=== PATIENT | male | born 1935 | race Caucasian/White ===

== ENCOUNTER 2016-09-08 09:27 | Outpatient (CLI) | payer MEDICARE, OTHER | END 2016-09-08 09:28 | disposition home or self-care (01) | DX: M85.88 Other specified disorders of bone density and structure, other site (principal) ==

== ENCOUNTER 2018-02-05 02:29 | Outpatient (CLI) | payer MEDICARE, OTHER | END 2018-02-05 02:30 | disposition critical access hospital (66) | LOC: EMS 02:29 | PROVIDERS: ATTEND Surgery | DX: R53.1 Weakness (principal); R52 Pain, unspecified | CPT/HCPCS: A0425; A0429 ==

== ENCOUNTER 2018-02-05 02:44 | Emergency (ER) | payer MEDICARE, OTHER ==
--- NOTE | 2018-02-05 03:18 | ED Physician Documentation ---
History of Present Illness - Stated complaint Stated Complaint: CHILLS, NOT FELLING WELL - Chief complaint Chief Complaint: Neuro - History obtained from History obtained from: Patient - History of Present Illness Timing: How many weeks ago (1) Pain level now: 5 Improved by: rest ameliorates the pain, although pain and stiffness are worse after prolonged rest Worsened by: movement exacerbates pain - Additonal information Additional information: c/o 1 week of gradually worsening pain and weakness in all extremities, with pain predominantly in proximal UE, shoulders and hips. cannot raise arms above head due to pain, and has had increasing difficulty brushing his teeth because of the pain associated with raising either arm high enough to do so. difficulty standing up, getting out of a chair Review of Systems Constitutional: reports: Chills, Myalgias. denies: Fever, Fatigue, Sweats Eyes: reports: Reviewed and negative Cardiac: reports: Reviewed and negative Respiratory: reports: Reviewed and negative GI: reports: Reviewed and negative : denies: Dysuria, Frequency, Incontinent Musculoskeletal: reports: Extremity pain. denies: Neck pain, Back pain Neurologic: reports: Generalized weakness. denies: Focal weakness, Numbness, Headache PD PAST MEDICAL HISTORY - Past Medical History Cardiovascular: Hypertension Respiratory: Other Endocrine/Autoimmune: None GI: None : Benign prostate hypertrophy HEENT: Other Psych: None Musculoskeletal: None Derm: None - Past Surgical History Ortho: Shoulder arthroplasty Cardiovascular:  - Present Medications Home Medications: Ambulatory Orders Medication Instructions Recorded Confirmed Aspirin 1 tab PO DAILY 07/11/14 02/05/18 Simvastatin [Zocor] 20 mg PO QPM 07/11/14 02/05/18 Telmisartan [Micardis] 80 mg PO DAILY 07/11/14 02/05/18 Doxycycline Hyclate [Vibramycin] 1 tab PO DAILY 02/05/18 02/05/18 Fluticasone [Flonase] 1 spray INH PRN PRN 02/05/18 02/05/18 Hydrochlorothiazide 1 tab PO DAILY 02/05/18 02/05/18 Loratadine [Claritin] 1 tab PO DAILY 02/05/18 02/05/18 Mometasone Furoate [Asmanex Hfa] 1 puffs INH PRN PRN 02/05/18 02/05/18 Multivitamin/Iron/Folic Acid 1 tab PO DAILY 02/05/18 02/05/18 [Centrum Adults Tablet] Pantoprazole [Protonix] 0.5 tab PO DAILY 02/05/18 02/05/18 Tamsulosin [Flomax] 1 tab PO DAILY 02/05/18 02/05/18 Umeclidinium Brm/Vilanterol Tr 1 puffs PO DAILY 02/05/18 02/05/18 [Anoro Ellipta 62.5-25 Mcg INH] predniSONE [Prednisone] 20 mg PO DAILY #30 tablet 02/05/18 - Allergies Allergies/Adverse Reactions: Allergies Allergy/AdvReac Type Severity Reaction Status Date / Time fluticasone propionate * AdvReac Unknown Verified 02/05/18 02:49 [From AdvVimagino Diskus] salmeterol xinafoate * AdvReac Unknown Verified 02/05/18 02:49 [From Advair Diskus] - Social History Does the pt smoke?: No Smoking Status: Never smoker PD ED PE NORMAL - Vitals Vital signs reviewed: Yes - General General: Alert and oriented X 3, No acute distress, Well developed/nourished - HEENT HEENT: Moist mucous membranes - Neck Neck: Supple, no meningeal sign - Cardiac Cardiac: RRR - Respiratory Respiratory: No respiratory distress, Clear bilaterally - Abdomen Abdomen: Soft, Non tender - Derm Derm: Normal color, Warm and dry - Extremities Extremities: No edema, Other (limited ROM: unable to abduct either arm to greater than 90 degrees due to pain, weakness) - Neuro Neuro: Alert and oriented X 3, 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, No motor deficit, No sensory deficit, Normal speech Eye Opening: Spontaneous Motor: Obeys Commands Verbal: Oriented GCS Score: 15 PD ED PE EXPANDED - Cardiac Cardiac: Murmur Present (2/6 THOMAS at cardiac base and left sternal border) Results - Vitals Vitals: Vital Signs - 24 hr 02/05/18 02/05/18 05:53 06:05 Heart Rate 65 67 Respiratory 18 16 Rate Blood Pressure 150/69 H 151/72 H O2 Saturation 97 97 Oxygen O2 Source Room air - EKG (time done) No standard instances Rate: Rate (enter#) (71) Rhythm: NSR [place]: LAD Intervals: Normal MT QRS: LVH Ischemia: Normal ST segments, Q waves (III, aVF) - Labs Labs: Laboratory Tests 02/05/18 02/05/18 02/05/18 04:00 04:00 04:00 WBC 6.5 RBC 4.25 L Hgb 13.3 L Hct 38.2 L MCV 89.9 MCH 31.4 H MCHC 34.9 RDW 14.6 Plt Count 161 MPV 9.3 Neut # (Auto) 4.0 Lymph # (Auto) 1.2 L [place] # (Auto) 0.9 Eos # (Auto) 0.4 Baso # (Auto) 0.0 Absolute Nucleated RBC 0.00 Nucleated RBC % 0.1 ESR Sodium 135 Potassium 3.9 Chloride 103 Carbon Dioxide 24 Anion Gap 8.0 BUN 15 Creatinine 1.0 Estimated GFR (MDRD) 72 L Glucose 130 H Lactic Acid Calcium 8.2 L Total Bilirubin 0.8 AST 47 H ALT 66 H Alkaline Phosphatase 93 Total Creatine Kinase 69 CK-MB (CK-2) 2.6 Troponin I 0.05 C-Reactive Protein 5.7 H Total Protein 6.2 L Albumin 3.1 L Globulin 3.1 Albumin/Globulin Ratio 1.0 Lipase 31 TSH Urine Color Urine Clarity Urine pH Ur Specific [place] Urine Protein Urine Glucose (UA) Urine Ketones Urine Occult Blood Urine Nitrite Urine Bilirubin Urine Urobilinogen Ur Leukocyte Esterase Urine RBC Urine WBC Ur Squamous Epith Cells Urine Bacteria Urine Mucus Ur Microscopic Review Urine Culture Comments 02/05/18 02/05/18 02/05/18 04:00 04:00 04:00 WBC RBC Hgb Hct MCV MCH MCHC RDW Plt Count MPV Neut # (Auto) Lymph # (Auto) [place] # (Auto) Eos # (Auto) Baso # (Auto) Absolute Nucleated RBC Nucleated RBC % ESR 15 Sodium Potassium Chloride Carbon Dioxide Anion Gap BUN Creatinine Estimated GFR (MDRD) Glucose Lactic Acid 0.7 Calcium Total Bilirubin AST ALT Alkaline Phosphatase Total Creatine Kinase CK-MB (CK-2) Troponin I C-Reactive Protein Total Protein Albumin Globulin Albumin/Globulin Ratio Lipase TSH 4.59 Urine Color Urine Clarity Urine pH Ur Specific [place] Urine Protein Urine Glucose (UA) Urine Ketones Urine Occult Blood Urine Nitrite Urine Bilirubin Urine Urobilinogen Ur Leukocyte Esterase Urine RBC Urine WBC Ur Squamous Epith Cells Urine Bacteria Urine Mucus Ur Microscopic Review Urine Culture Comments 02/05/18 04:23 WBC RBC Hgb Hct MCV MCH MCHC RDW Plt Count MPV Neut # (Auto) Lymph # (Auto) [place] # (Auto) Eos # (Auto) Baso # (Auto) Absolute Nucleated RBC Nucleated RBC % ESR Sodium Potassium Chloride Carbon Dioxide Anion Gap BUN Creatinine Estimated GFR (MDRD) Glucose Lactic Acid Calcium Total Bilirubin AST ALT Alkaline Phosphatase Total Creatine Kinase CK-MB (CK-2) Troponin I C-Reactive Protein Total Protein Albumin Globulin Albumin/Globulin Ratio Lipase TSH Urine Color YELLOW Urine Clarity CLEAR Urine pH 6.0 Ur Specific [place] 1.020 Urine Protein NEGATIVE Urine Glucose (UA) NEGATIVE Urine Ketones NEGATIVE Urine Occult Blood MODERATE H Urine Nitrite NEGATIVE Urine Bilirubin NEGATIVE Urine Urobilinogen 0.2 (NORMAL) Ur Leukocyte Esterase NEGATIVE Urine RBC 0-5 Urine WBC 0-3 Ur Squamous Epith Cells FEW Squamous Urine Bacteria Rare Urine Mucus Few Strands Ur Microscopic Review INDICATED Urine Culture Comments NOT INDICATED PD MEDICAL DECISION MAKING - ED course Complexity details: reviewed results, re-evaluated patient, considered differential, d/w patient - Sepsis Event Vital Signs: Vital Signs - 24 hr 02/05/18 02/05/18 05:53 06:05 Heart Rate 65 67 Respiratory 18 16 Rate Blood Pressure 150/69 H 151/72 H O2 Saturation 97 97 Oxygen O2 Source Room air Departure - Departure Disposition: 01 Home, Self Care Clinical Impression: Polymyalgia rheumatica Condition: Good Instructions: Understanding Polymyalgia Rheumatica, Treatment for Polymyalgia Rheumatica Follow-Up: Kali Fajardo MD [Primary Care Provider] - Prescriptions: predniSONE [Prednisone] 20 mg PO DAILY #30 tablet Comments: It is essential that you follow-up with your primary care physician for further evaluation/reassessment. Do not suddenly stop the steroid (prednisone); you will likely need to be tapered off of the steroid. I have prescribed a one month supply of the steroid; this should give adequate time for you to be seen by your doctor, and they can prescribe more or prescribe a taper as they see appropriate. Discharge Date/Time: 02/05/18 06:05
[2018-02-05 04:21] LABS: BASOPHILS % (AUTO) 0.7 %; EOSINOPHILS # (AUTO) 0.4 10^3/uL (0.0-0.7); EOSINOPHILS % (AUTO) 5.9 %; HGB - HEMOGLOBIN 13.3 g/dL (14.0-18.0); LYMPHOCYTES # (AUTO) 1.2 10^3/uL (1.5-3.5); MEAN CORPUSCULAR HEMOGLOBIN 31.4 pg (27.0-31.0); MEAN CORPUSCULAR HGB CONC 34.9 g/dL (32.0-36.0); MEAN CORPUSCULAR VOLUME 89.9 fL (80.0-94.0); MEAN PLATELET VOLUME 9.3 fL (7.4-11.4); MONOCYTES # (AUTO) 0.9 10^3/uL (0.0-1.0); MONOCYTES % (AUTO) 13.5 %; NEUTROPHILS % (AUTO) 61.9 %; PLT - PLATELET COUNT 161 10^3/uL (130-450); RED BLOOD COUNT 4.25 10^6/uL (4.70-6.10); RED CELL DISTRIBUTION WIDTH 14.6 % (12.0-15.0); WHITE BLOOD COUNT 6.5 x10^3/uL (4.8-10.8)
[2018-02-05 04:28] LABS: BILIRUBIN,URINE NEGATIVE (NEGATIVE); GLUCOSE, URINE (UA) NEGATIVE (NEGATIVE); KETONES,URINE (UA) NEGATIVE (NEGATIVE); LEUKOCYTE ESTERASE, URINE NEGATIVE (NEGATIVE); NITRITE,URINE NEGATIVE (NEGATIVE); OCCULT BLOOD,URINE MODERATE (NEGATIVE); PROTEIN,URINE NEGATIVE (NEGATIVE); UROBILINOGEN,URINE 0.2 (NORMAL) E.U./dL (NORMAL)
--- NOTE | 2018-02-05 04:28 | XRAY Report ---
Reason: dyspnea Procedure Date: 02/05/2018 Accession Number: [id number] / [id number] Procedure: XR - Chest 2 View X-Ray CPT Code: 54449 FULL RESULT: EXAM: CHEST RADIOGRAPHY EXAM DATE: 02/05/2018 04:21 AM. CLINICAL HISTORY: Dyspnea COMPARISON: CHEST 2 VIEW PA/LAT 12/31/2015 11:28 AM CHEST W/O 12/31/2015 12:02 AM. TECHNIQUE: 2 views. FINDINGS: Lungs/Pleura: No focal opacities evident. No pleural effusion. No pneumothorax. Normal volumes. Mediastinum: Heart and mediastinal contours are unremarkable. Other: None. IMPRESSION: Stable negative 2-view chest radiography. RADIA
[2018-02-05 04:31] LABS: TROPONIN I 0.05 ng/mL (<0.49)
[2018-02-05 04:32] LABS: ALBUMIN 3.1 g/dL (3.2-5.5); BILIRUBIN,TOTAL 0.8 mg/dL (0.2-1.0); CALCIUM 8.2 mg/dL (8.5-10.3); CRP - C-REACTIVE PROTEIN 5.7 mg/dL (0-1.0); TOTAL PROTEIN 6.2 g/dL (6.7-8.2)
[2018-02-05 04:33] LABS: CREATINE KINASE MB 2.6 ng/mL (0.6-6.3)
[2018-02-05 04:50] LABS: CLARITY,URINE CLEAR (CLEAR); RBC,URINE 0-5 /HPF (0-5)
[2018-02-05 04:51] LABS: BACTERIA,URINE Rare /HPF (None Seen); MUCUS,URINE Few Strands; SQUAMOUS EPITHELIAL CELL,UR FEW Squamous (<= Few)
[2018-02-05] MEDS ORDERED: predniSONE 20 MG TABLET PO STA (05:52)
[2018-02-05 06:11] VITALS: BP 151/72
== END 2018-02-05 06:05 | disposition home or self-care (01) ==
LOC: EDUNIT# → EDBD → ED 02:44
DX: M35.3 Polymyalgia rheumatica (principal); I10 Essential (primary) hypertension
CPT/HCPCS: 36415; 71046; 80053; 81001; 82550; 82553; 83605; 83690; 84443; 84484; 85025; 85651; 86140; 93005; 99283; J7512; 81003; 87086

== ENCOUNTER 2019-01-31 11:14 | Outpatient (CLI) | payer MEDICARE, OTHER | END 2019-01-31 11:15 | disposition home or self-care (01) | LOC: DI 11:14 | PROVIDERS: ATTEND Internal Medicine | DX: R06.00 Dyspnea, unspecified (principal); I35.0 Nonrheumatic aortic (valve) stenosis; I27.20 Pulmonary hypertension, unspecified; I51.9 Heart disease, unspecified | CPT/HCPCS: 93306 ==

== ENCOUNTER 2019-03-21 11:14 | Outpatient (CLI) | payer MEDICARE, OTHER ==
--- NOTE | 2019-03-21 17:23 | XRAY Report ---
Reason: EARLY SATIETY, GERD, ABD BLOATING Procedure Date: 03/21/2019 Accession Number: [id number] / [id number] Procedure: FL - Esophogram CPT Code: FULL RESULT: EXAM: BARIUM ESOPHAGRAM EXAM DATE: 03/21/2019 12:00 PM. CLINICAL HISTORY: Early satiety, GERD, abdominal bloating. COMPARISONS: None. TECHNIQUE: Routine double contrast esophagram. Fluoroscopy Time: 1 minute 35 seconds. Number of Images: 47. FINDINGS: Swallowing Mechanism: Normal. No tracheal aspiration or penetration. Esophageal Motility: Normal peristaltic stripping wave. Mucosa: Normal. No ulcerations or masses. Gastroesophageal Junction: Normal. No hernia, stricture, or significant reflux. Other: Small Zenker's diverticulum is noted on rapid sequence pharyngeal swallowing study at the level of C6. Filling of the diverticulum was transient and emptying was spontaneous. IMPRESSION: 1. Small Zenker's diverticulum, likely incidental. 2. Otherwise normal barium swallow. RADIA
== END 2019-03-21 11:15 | disposition home or self-care (01) ==
LOC: DI 11:14
PROVIDERS: ATTEND Physician Assistant Medical
DX: R68.81 Early satiety (principal); K21.9 Gastro-esophageal reflux disease without esophagitis; R14.0 Abdominal distension (gaseous); K22.5 Diverticulum of esophagus, acquired
CPT/HCPCS: 74220

== ENCOUNTER 2019-05-25 08:59 | Outpatient (CLI) | payer MEDICARE, OTHER ==
[2019-05-25] MEDS: BARIUM SULFATE 148 GM POWDER PO ONE (10:43)
[2019-05-25] MEDS: DIATR MEGLU/DIATRIZOATE SODIUM 120 ML BOTTLE PO ONE (10:43)
--- NOTE | 2019-05-25 11:15 | XRAY Report ---
Reason: WEIGHT LOSS,EARLY SATIETY,REGURGITATION Procedure Date: 05/25/2019 Accession Number: [id number] / [id number] Procedure: FL - UGI SBFT W/Air CPT Code: Final Report FULL RESULT: EXAM: UPPER GI WITH SMALL BOWEL FOLLOW-THROUGH EXAM DATE: 05/25/2019 10:41 AM. CLINICAL HISTORY: Weight loss, early satiety, regurgitation. COMPARISONS: ESOPHOGRAM 03/21/2019 11:27 AM. TECHNIQUE: Routine single contrast upper gastrointestinal small bowel follow-through technique. Fluoroscopy Time: 1 minute 48 seconds. Number of fluoroscopy images: 17. FINDINGS: Swallowing Mechanism: Not evaluated given clinical indication. Esophageal Motility: Somewhat discordant in peristaltic stripping wave. Esophageal Mucosa: Limited visualization on single-contrast exam, refer to double-contrast exam recently performed. Gastroesophageal Junction: Normal. No hernia or significant reflux demonstrated with or without Valsalva maneuvers. Stomach: Normal gastric mucosal pattern. No ulcers identified. Duodenum: There is an apparent persistent narrowing in the first portion of the duodenum seen at multiple time points. Jejunum: Normal mucosal pattern. No masses or obstruction. Ileum: Normal mucosal pattern. No masses or obstruction. The ileocecal valve is patent and competent with passage of contrast into the cecum. Other: None. IMPRESSION: Question persistent fixed narrowing at the first duodenum. Given endoscopically reported impression of large hiatal hernia and small bowel follow-through finding of question of narrowing of the proximal portion of the duodenum with demonstration of absence of any hiatal hernia, question there is a proximal duodenal abnormality limiting progression of contents from stomach into the proximal small bowel and potentially also having complicated the upper endoscopy. Please correlate to endoscopic procedural findings. RADIA
== END 2019-05-25 09:00 | disposition home or self-care (01) ==
LOC: DI 08:59
PROVIDERS: ATTEND Internal Medicine Gastroenterology
DX: R63.4 Abnormal weight loss (principal); R68.81 Early satiety; R11.10 Vomiting, unspecified
CPT/HCPCS: 74249; Q9963

== ENCOUNTER 2019-06-10 14:54 | Emergency (ER) | payer MEDICARE, OTHER ==
[2019-06-10 15:07] VITALS: BP 152/72
[2019-06-10] MEDS ORDERED: SODIUM CHLORIDE 0.9% 1,000 ML IV ONE ×2 (15:51)
[2019-06-10] MEDS ORDERED: MAG HYDROX/AL HYDROX/SIMETH 30 ML UDC PO STA (15:55)
[2019-06-10] MEDS ORDERED: SUCRALFATE 1 GM/10 ML UDC PO STA (15:55)
--- NOTE | 2019-06-10 15:56 | ED Physician Documentation ---
History of Present Illness - Stated complaint Stated Complaint: STOMACH PX/ MED REACTION - Chief complaint Chief Complaint: Abd Pain - History obtained from History obtained from: Patient, Family - History of Present Illness Timing: Other (3 months ago) Pain level max: 6 Pain level now: 5 - Additonal information Additional information: 83-year-old male presents to the emergency department with abdominal pain, worse with eating, nothing makes it better. He has had an upper GI, anoscopy, biopsy. He is being treated for H pylori, though is confused about what medications he is supposed to take when and how much of each. He is also on a PPI at home, again he is unsure which one or what the dose is. No vomiting. No diarrhea. No fevers. Review of Systems Constitutional: denies: Fever, Chills Cardiac: denies: Chest pain / pressure Respiratory: denies: Cough GI: denies: Vomiting, Diarrhea, Hematemesis, Bloody / black stool Skin: denies: Rash Musculoskeletal: denies: Neck pain, Back pain Neurologic: denies: Headache PD PAST MEDICAL HISTORY - Past Medical History Cardiovascular: Hypertension Respiratory: Other Endocrine/Autoimmune: None GI: None : Benign prostate hypertrophy HEENT: Other Psych: None Musculoskeletal: None Derm: None - Past Surgical History Ortho: Shoulder arthroplasty Cardiovascular:  - Present Medications Home Medications: Ambulatory Orders Medication Instructions Recorded Confirmed Pantoprazole [Protonix] 0.5 tab PO DAILY 02/05/18 06/10/19 Tamsulosin [Flomax] 1 tab PO DAILY 02/05/18 06/10/19 Umeclidinium Brm/Vilanterol Tr 1 puffs PO DAILY 02/05/18 06/10/19 [Anoro Ellipta 62.5-25 Mcg INH] Amoxicillin 500 mg PO BID 06/10/19 06/10/19 Clarithromycin 250 mg PO 06/10/19 Metronidazole [Flagyl] 500 mg PO TID #42 tablet 06/10/19 Sucralfate [Carafate] 1 gm PO ACHS #60 tablet 06/10/19 - Allergies Allergies/Adverse Reactions: Allergies Allergy/AdvReac Type Severity Reaction Status Date / Time fluticasone propionate * AdvReac Unknown Verified 02/05/18 02:49 [From Advair Diskus] salmeterol xinafoate * AdvReac Unknown Verified 02/05/18 02:49 [From Advair Diskus] - Social History Does the pt smoke?: No Smoking Status: Never smoker PD ED PE NORMAL - Vitals Vital signs reviewed: Yes - General General: Alert and oriented X 3, No acute distress, Well developed/nourished - HEENT HEENT: Moist mucous membranes - Neck Neck: Supple, no meningeal sign - Cardiac Cardiac: RRR, Strong equal pulses - Respiratory Respiratory: No respiratory distress, Clear bilaterally - Abdomen Abdomen: Soft, Non tender, Non distended - Derm Derm: Warm and dry, No rash - Extremities Extremities: No edema - Neuro Neuro: Alert and oriented X 3 - Psych Psych: Normal mood, Normal affect Results - Vitals Vitals: Vital Signs - 24 hr 06/10/19 06/10/19 15:01 15:06 Temperature 36.8 C Heart Rate 85 85 Respiratory 18 18 Rate Blood Pressure 152/72 H 152/72 H O2 Saturation 99 99 Oxygen O2 Source Room air - Labs Labs: Laboratory Tests 06/10/19 06/10/19 16:00 16:00 WBC 7.8 RBC 4.69 L Hgb 14.1 Hct 43.8 MCV 93.4 MCH 30.1 MCHC 32.2 RDW 13.6 Plt Count 238 MPV 10.6 Neut # (Auto) 4.8 Lymph # (Auto) 1.8 [place] # (Auto) 1.0 Eos # (Auto) 0.1 Baso # (Auto) 0.1 Absolute Nucleated RBC 0.00 Nucleated RBC % 0.0 Sodium 138 Potassium 4.0 Chloride 98 L Carbon Dioxide 32 Anion Gap 8.0 BUN 18 Creatinine 1.3 H Estimated GFR (MDRD) 53 L Glucose 142 H Calcium 9.3 Total Bilirubin 0.5 AST 26 ALT 27 Alkaline Phosphatase 97 Total Protein 6.7 Albumin 3.4 Globulin 3.3 Albumin/Globulin Ratio 1.0 Lipase 28 PD MEDICAL DECISION MAKING - ED course Complexity details: reviewed old records, re-evaluated patient, considered differential, d/w patient, d/w family ED course: Reviewed his medical records. Appears to have H. pylori with gastritis. Possible ulcer as well. Feels better after a GI cocktail here. Reviewed his medications and we will add Flagyl to his clarithromycin triple therapy. He is already on clarithromycin, amoxicillin and a PPI for home. We will also add Carafate to see if this helps his symptoms and allows him to eat better. No significant laboratory abnormalities at this time. Patient and family counseled regarding signs and symptoms for which I believe and urgent re-evaluation would be necessary. Patient with good understanding of and agreement to plan and is comfortable going home at this time This document was made in part using voice recognition software. While efforts are made to proofread this document, sound alike and grammatical errors may occur. Departure - Departure Disposition: 01 Home, Self Care Clinical Impression: Helicobacter positive gastritis Condition: Good Instructions: ED PUD Vs Gastritis Follow-Up: Kali Fajardo MD [Primary Care Provider] - Within 1 week Prescriptions: Metronidazole [Flagyl] 500 mg PO TID #42 tablet Sucralfate [Carafate] 1 gm PO ACHS #60 tablet Comments: You should be taking the following: Clarithromycin 500mg by mouth twice a day. Amoxicillin 1000mg by mouth twice a day. A PPI (like nexium) twice a day And the new medication 3 times a day (metronidazole) You can use maalox or pepto bismol for pain as well. Return if you worsen. Discharge Date/Time: 06/10/19 17:00
[2019-06-10 16:09] LABS: BASOPHILS # (AUTO) 0.1 10^3/uL (0.0-0.1); BASOPHILS % (AUTO) 0.8 %; EOSINOPHILS # (AUTO) 0.1 10^3/uL (0.0-0.7); EOSINOPHILS % (AUTO) 0.9 %; HGB - HEMOGLOBIN 14.1 g/dL (14.0-18.0); LYMPHOCYTES # (AUTO) 1.8 10^3/uL (1.5-3.5); LYMPHOCYTES % (AUTO) 23.5 %; MEAN CORPUSCULAR HEMOGLOBIN 30.1 pg (27.0-31.0); MEAN CORPUSCULAR HGB CONC 32.2 g/dL (32.0-36.0); MEAN CORPUSCULAR VOLUME 93.4 fL (80.0-94.0); MEAN PLATELET VOLUME 10.6 fL (7.4-11.4); MONOCYTES % (AUTO) 12.6 %; NEUTROPHILS # (AUTO) 4.8 10^3/uL (1.5-6.6); NEUTROPHILS % (AUTO) 61.9 %; PLT - PLATELET COUNT 238 10^3/uL (130-450); RED BLOOD COUNT 4.69 10^6/uL (4.70-6.10); RED CELL DISTRIBUTION WIDTH 13.6 % (12.0-15.0); WHITE BLOOD COUNT 7.8 x10^3/uL (4.8-10.8)
[2019-06-10 16:21] LABS: ALBUMIN 3.4 g/dL (3.2-5.5); BILIRUBIN,TOTAL 0.5 mg/dL (0.2-1.0); CALCIUM 9.3 mg/dL (8.5-10.3); CREATININE 1.3 mg/dL (0.6-1.2); TOTAL PROTEIN 6.7 g/dL (6.7-8.2)
== END 2019-06-10 17:00 | disposition home or self-care (01) ==
LOC: ED 14:54
DX: K29.70 Gastritis, unspecified, without bleeding (principal); B96.81 Helicobacter pylori [H. pylori] as the cause of diseases classified elsewhere; I10 Essential (primary) hypertension
CPT/HCPCS: 36415; 80053; 83690; 85025; 99283; 99284; A9270

== ENCOUNTER 2019-06-14 10:51 | Inpatient (IN) | payer MEDICARE, OTHER ==
--- NOTE | 2019-06-14 12:09 | ED Physician Documentation ---
PD HPI ABD PAIN - Stated complaint Stated Complaint: VOMITING - Chief complaint Chief Complaint: Abd Pain - History obtained from History obtained from: Patient, Family - History of Present Illness Timing - onset: Today (83-year-old gentleman with known H. pylori gastritis being treated for same with antibiotics and PPI developed upper abdominal pain and one episode each of vomiting and dark diarrhea today. This was after taking Pepto-Bismol, so not sure if the dark stool was related to the Pepto-Bismol or internal bleeding. He feels weak and dizzy but per the is no more pale than normal. Denies fevers. Declines pain or nausea medication on initial evaluation.) Review of Systems Constitutional: denies: Fever, Chills Cardiac: denies: Chest pain / pressure, Palpitations Respiratory: denies: Dyspnea, Cough GI: reports: Abdominal Pain, Nausea, Vomiting, Diarrhea, Bloody / black stool. denies: Hematemesis PD PAST MEDICAL HISTORY - Past Medical History Cardiovascular: Hypertension Respiratory: Other Endocrine/Autoimmune: None GI: None : Benign prostate hypertrophy HEENT: Other Psych: None Musculoskeletal: None Derm: None - Past Surgical History Ortho: Shoulder arthroplasty Cardiovascular:  - Present Medications Home Medications: Ambulatory Orders Medication Instructions Recorded Confirmed Pantoprazole [Protonix] 0.5 tab PO DAILY 02/05/18 06/10/19 Tamsulosin [Flomax] 1 tab PO DAILY 02/05/18 06/10/19 Umeclidinium Brm/Vilanterol Tr 1 puffs PO DAILY 02/05/18 06/10/19 [Anoro Ellipta 62.5-25 Mcg INH] Amoxicillin 500 mg PO BID 06/10/19 06/10/19 Clarithromycin 250 mg PO 06/10/19 Metronidazole [Flagyl] 500 mg PO TID #42 tablet 06/10/19 Sucralfate [Carafate] 1 gm PO ACHS #60 tablet 06/10/19 Ondansetron Odt [Zofran] 4 mg TL Q6H PRN #10 tablet 06/14/19 - Allergies Allergies/Adverse Reactions: Allergies Allergy/AdvReac Type Severity Reaction Status Date / Time fluticasone propionate * AdvReac Unknown Verified 06/14/19 11:11 [From Advair Diskus] salmeterol xinafoate * AdvReac Unknown Verified 06/14/19 11:11 [From Advair DiskToopher] - Social History Does the pt smoke?: No Smoking Status: Never smoker PD ED PE NORMAL - Vitals Vital signs reviewed: Yes - General General: Alert and oriented X 3, No acute distress - Neck Neck: Supple, no meningeal sign, No bony TTP - Cardiac Cardiac: RRR, Other (subtle early SM RUSB) - Respiratory Respiratory: No respiratory distress, Clear bilaterally - Abdomen Abdomen: Normal bowel sounds, Soft, Other (mild LUQ TTP) - Back Back: No CVA TTP, No spinal TTP - Derm Derm: Normal color, Warm and dry - Extremities Extremities: No edema, No calf tenderness / cord - Neuro Neuro: Alert and oriented X 3, Normal speech Results - Vitals Vitals: Vital Signs - 24 hr 06/14/19 11:11 Temperature 36.7 C Heart Rate 89 Respiratory 17 Rate Blood Pressure 126/58 L O2 Saturation 100 Oxygen O2 Source Room air - Labs Labs: Microbiology 06/14/19 12:15 Occult Blood - Final Stool Laboratory Tests 06/14/19 06/14/19 06/14/19 12:08 12:08 14:04 WBC 7.8 RBC 4.64 L Hgb 13.8 L Hct 42.7 MCV 92.0 MCH 29.7 MCHC 32.3 RDW 13.6 Plt Count 251 MPV 10.6 Neut # (Auto) 5.4 Lymph # (Auto) 1.5 [place] # (Auto) 0.8 Eos # (Auto) 0.0 Baso # (Auto) 0.1 Absolute Nucleated RBC 0.00 Nucleated RBC % 0.0 Sodium 137 Potassium 3.6 Chloride 96 L Carbon Dioxide 32 Anion Gap 9.0 BUN 12 Creatinine 1.3 H Estimated GFR (MDRD) 53 L Glucose 146 H Calcium 9.0 Total Bilirubin 0.9 AST 57 H ALT 42 Alkaline Phosphatase 87 Total Protein 6.3 L Albumin 3.5 Globulin 2.8 Albumin/Globulin Ratio 1.3 Lipase 28 Urine Color YELLOW Urine Clarity CLEAR Urine pH 8.5 H Ur Specific [place] 1.015 Urine Protein NEGATIVE Urine Glucose (UA) NEGATIVE Urine Ketones TRACE Urine Occult Blood NEGATIVE Urine Nitrite NEGATIVE Urine Bilirubin NEGATIVE Urine Urobilinogen 0.2 (NORMAL) Ur Leukocyte Esterase NEGATIVE Ur Microscopic Review NOT INDICATED Urine Culture Comments NOT INDICATED 06/14/19 14:37 WBC RBC Hgb 13.5 L Hct 41.6 L MCV MCH MCHC RDW Plt Count MPV Neut # (Auto) Lymph # (Auto) [place] # (Auto) Eos # (Auto) Baso # (Auto) Absolute Nucleated RBC Nucleated RBC % Sodium Potassium Chloride Carbon Dioxide Anion Gap BUN Creatinine Estimated GFR (MDRD) Glucose Calcium Total Bilirubin AST ALT Alkaline Phosphatase Total Protein Albumin Globulin Albumin/Globulin Ratio Lipase Urine Color Urine Clarity Urine pH Ur Specific [place] Urine Protein Urine Glucose (UA) Urine Ketones Urine Occult Blood Urine Nitrite Urine Bilirubin Urine Urobilinogen Ur Leukocyte Esterase Ur Microscopic Review Urine Culture Comments - Rads (name of study) CT A/P Radiology: 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 pylori gastritis undergoing treatment for same with antibiotic therapy who has an upper abdominal pain and vomiting today. He vomited here, there was note there is no blood in it but he is guaiac positive from below as such she was kept around for a repeat H&H despite the good initial H&H, and there was no significant change. 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 Spoke with Dr Mejia who will consult. And Dr Alfonso for admit at 1557 Departure - Departure Disposition: 66 [facility] DC/Xfer Clinical Impression: Helicobacter positive gastritis, SBO (small bowel obstruction) Vomiting Qualifiers: Vomiting type: unspecified Vomiting Intractability: non-intractable Nausea presence: with nausea Qualified Code(s): R11.2 - Nausea with vomiting, unspecified Condition: Serious Record reviewed to determine appropriate education?: Yes Instructions: ED Gastritis, ED Nausea Vomiting Prescriptions: Ondansetron Odt [Zofran] 4 mg TL Q6H PRN #10 tablet PRN Reason: Nausea / Vomiting Comments: Since you are on the last day of the antibiotics he can probably stop them now, follow-up for the repeat endoscopy as scheduled. Return for new or worsening symptoms. Continue the proton pump inhibitor AKA Nexium.
[2019-06-14] MEDS ORDERED: SODIUM CHLORIDE 0.9% 1,000 ML IV ONE (12:16)
[2019-06-14 12:23] LABS: BASOPHILS # (AUTO) 0.1 10^3/uL (0.0-0.1); BASOPHILS % (AUTO) 0.8 %; EOSINOPHILS % (AUTO) 0.4 %; HGB - HEMOGLOBIN 13.8 g/dL (14.0-18.0); LYMPHOCYTES # (AUTO) 1.5 10^3/uL (1.5-3.5); LYMPHOCYTES % (AUTO) 19.1 %; MEAN CORPUSCULAR HEMOGLOBIN 29.7 pg (27.0-31.0); MEAN CORPUSCULAR HGB CONC 32.3 g/dL (32.0-36.0); MEAN PLATELET VOLUME 10.6 fL (7.4-11.4); MONOCYTES # (AUTO) 0.8 10^3/uL (0.0-1.0); MONOCYTES % (AUTO) 10.6 %; NEUTROPHILS # (AUTO) 5.4 10^3/uL (1.5-6.6); NEUTROPHILS % (AUTO) 68.7 %; PLT - PLATELET COUNT 251 10^3/uL (130-450); RED BLOOD COUNT 4.64 10^6/uL (4.70-6.10); RED CELL DISTRIBUTION WIDTH 13.6 % (12.0-15.0); WHITE BLOOD COUNT 7.8 x10^3/uL (4.8-10.8)
[2019-06-14 12:34] LABS: ALBUMIN 3.5 g/dL (3.2-5.5); ALBUMIN/GLOBULIN RATIO 1.3 (1.0-2.2); BILIRUBIN,TOTAL 0.9 mg/dL (0.2-1.0); CREATININE 1.3 mg/dL (0.6-1.2); TOTAL PROTEIN 6.3 g/dL (6.7-8.2)
[2019-06-14] MEDS ORDERED: HYDROcod/ACETAM 5/325 MG TABLET PO STA (12:49)
[2019-06-14] MEDS ORDERED: PANTOPRAZOLE 40 MG VIAL IVP STA (12:50)
[2019-06-14] MEDS ORDERED: ONDANSETRON 4 MG/2 ML VIAL IVP STA (14:17)
[2019-06-14 14:26] LABS: BILIRUBIN,URINE NEGATIVE (NEGATIVE); GLUCOSE, URINE (UA) NEGATIVE (NEGATIVE); KETONES,URINE (UA) TRACE mg/dL (NEGATIVE); LEUKOCYTE ESTERASE, URINE NEGATIVE (NEGATIVE); NITRITE,URINE NEGATIVE (NEGATIVE); OCCULT BLOOD,URINE NEGATIVE (NEGATIVE); PH,URINE 8.5 PH (5.0-7.5); PROTEIN,URINE NEGATIVE (NEGATIVE); UROBILINOGEN,URINE 0.2 (NORMAL) E.U./dL (NORMAL)
[2019-06-14 14:27] LABS: CLARITY,URINE CLEAR (CLEAR)
[2019-06-14 14:41] LABS: HGB - HEMOGLOBIN 13.5 g/dL (14.0-18.0)
[2019-06-14] MEDS ORDERED: MORPHINE 10 MG/ML VIAL IVP STA (14:55)
[2019-06-14] MEDS ORDERED: METOCLOPRAMIDE 10 MG/2 ML VIAL IVP STA (14:55)
[2019-06-14] MEDS ORDERED: IOVERSOL 320 100 ML VIAL IVP ONE ×2 (15:01→16:15)
--- NOTE | 2019-06-14 15:48 | CT Report ---
Reason: IV only, abd pain, vomiting Procedure Date: 06/14/2019 Accession Number: [id number] / [id number] Procedure: CT - Abdomen/Pelvis W CPT Code: Final Report FULL RESULT: EXAM: CT ABDOMEN AND PELVIS EXAM DATE: 06/14/2019 03:22 PM. CLINICAL HISTORY: IV only, abd pain, vomiting. COMPARISONS: UGI 05/25/2019 9:17 AM. TECHNIQUE: Routine helical CT imaging was performed through the abdomen and pelvis. IV contrast: OPTI 320 100ML. Enteric contrast: No. Reconstructions: Coronal and sagittal. In accordance with CT protocol optimization, one or more of the following dose reduction techniques were utilized for this exam: automated exposure control, adjustment of mA and/or KV based on patient size, or use of iterative reconstructive technique. FINDINGS: Lung Bases: Bibasilar atelectasis. Liver: Normal. No masses. Gallbladder/Bile Ducts: Unremarkable. Spleen: Calcified granulomas. Pancreas: Normal. Adrenal Glands: Normal. Kidneys: No masses or hydronephrosis. Peritoneal Cavity/Bowel: Small bowel obstruction, with transition point in the distal jejunum due to circumferential mass-like wall thickening approximately 5.5 cm in length (axial series 3, image 62). Small mesenteric free fluid. The distal small bowel is decompressed. Pelvic Organs: The bladder is lobulated, query chronic outlet obstruction. Vasculature: Severe atherosclerotic calcification, without evidence of aneurysm or dissection. Bones: Degenerative changes. Other: Right inguinal hernia containing fat and ascites. IMPRESSION: Small bowel obstruction with transition point in distal jejunum due to circumferential mass-like wall thickening, worrisome for malignancy. Small free mesenteric fluid. RADIA The call report notification system was initiated by Dr. Shonna Cardenas at 03:36 PM on 06/14/2019. The above findings were discussed with nurse Candida by Dr. Shonna Cardenas at 03:45 PM on 06/14/2019.
[2019-06-14 16:27] LABS: INR 1.4 (0.8-1.2); PT - PROTHROMBIN TIME 15.2 secs (9.9-12.6)
[2019-06-14] MEDS ORDERED: D5.45NS W/20 MEQ KCL 1,000 ML IV STA ×2 (16:44→17:02)
--- NOTE | 2019-06-14 16:45 | XRAY Report ---
Reason: sob Procedure Date: 06/14/2019 Accession Number: [id number] / [id number] Procedure: XR - Chest 1 View X-Ray CPT Code: 48279 Final Report FULL RESULT: EXAM: CHEST RADIOGRAPHY EXAM DATE: 06/14/2019 04:36 PM. CLINICAL HISTORY: Shortness of breath. COMPARISON: CHEST 2 VIEW 02/05/2018 4:02 AM. TECHNIQUE: 1 view. FINDINGS: LUNGS: Elevation of the right hemidiaphragm. The lungs are otherwise clear. PLEURA: No significant pleural effusion. No clinically significant pneumothorax. MEDIASTINUM: Heart and mediastinal contours are notable for aortic calcification. The cardiac silhouette is normal in size. BONES: No suspicious osseous lesions. IMPRESSION: No acute cardiopulmonary abnormality. RADIA
[2019-06-14] MEDS ORDERED: SODIUM CHLORIDE 0.9% 1,000 ML IV SCH (17:00)
--- NOTE | 2019-06-14 17:08 | HISTORY & PHYSICAL EXAMINATION ---
Chief Complaint - Chief Complaint Chief Complaint: vomiting History of Present Illness - History of Present Illness HPI Comment/Other: Mr. 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 pt report he vomit immediately after drink small water. He report upper quadrant abdominal pain as well. He did not recognize he has rectal bleeding but guaiac test is positive in ER. Per pt's daughter report, an EGD done [place] apparently showed a large HH and H. pylori gastritis, and he was prescribed on triple agents therapy now for nearly two weeks. pt denies fever,chill, shortness or breath, chest pain. today CT of abdomen/pelvis reveals abd/pelvic a high grade partial SBO due to a mass-like wall thickening in the distal jejunum, worrisome for malignancy, and small free mesenteric fluid. There is no evidence of mesenteric lymphadenopathy or liver mass. CXR reveals no acute cardiopu lmonary abnormality. route Lab test reveals INR is 1.4, creatinine 1.3, and HGB is 13.8. surgeon was called for consult. pt is admitted for above medical reason. History - Past Medical History Cardiovascular: reports: Hypertension Respiratory: reports: Other Endocrine/Autoimmune: reports: None GI: reports: None : reports: Benign prostate hypertrophy HEENT: reports: Other Psych: reports: None Musculoskeletal: reports: None Derm: reports: None MRSA Hx?: No - Past Surgical History Ortho: reports: Shoulder arthroplasty Cardiovascular: - Family & Social History Family History: Mother: , CAD, Father: , CAD Family History Comment/Other: pt report both his parents had CAD. Living arrangement: At home Living Situation: With spouse/s.o. Social History Notes: pt report he is living at [facility] with his . he report smoking hx in [place], he denies alcohol and drug issue. - POLST Patient has POLST: No Meds/Allgy - Home Medications Home Medications: Ambulatory Orders Medication Instructions Recorded Confirmed Tamsulosin [Flomax] 0.4 mg PO DAILY 02/05/18 06/14/19 Umeclidinium Brm/Vilanterol Tr 1 inh PO DAILY 02/05/18 06/14/19 [Anoro Ellipta 62.5-25 Mcg INH] Levothyroxine Sodium 25 mcg PO QDAC 06/14/19 06/14/19 Mometasone Furoate [Asmanex] 1 puffs INH BID 06/14/19 06/14/19 Montelukast Sodium 10 mg PO QPM 06/14/19 06/14/19 Pantoprazole Sodium 20 mg PO QDAC 06/14/19 06/14/19 Prednisone 5 mg PO DAILY 06/14/19 06/14/19 Simvastatin 20 mg PO QPM 06/14/19 06/14/19 - Allergies Allergies/Adverse Reactions: Allergies Allergy/AdvReac Type Severity Reaction Status Date / Time fluticasone propionate * AdvReac Unknown Verified 06/14/19 11:11 [From Advair Diskus] salmeterol xinafoate * AdvReac Unknown Verified 06/14/19 11:11 [From Advair Diskus] Review of Systems - Constitutional Constitutional: denies: Fatigue, Fever, Chills, Malaise, Weakness, Poor appetite, Diaphoresis, Night sweats - Eyes Eyes: denies: Pain, Irritation, Amaurosis, Blurred vision, Spots in vision, F ield loss, Vision loss, Dipolpia - Ears, Nose & Throat Ears, Nose & Throat: denies: Ear pain, Hearing loss, Hearing aids, Vertigo, Nasal pain, Nasal discharge, Nosebleeds, Nasal obstruction, Nasal congestion, Postnasal drainage, Dentures, Sore throat - Cardiovascular Cariovascular: denies: Irregular heart rate, Palpitations, Chest pain, Edema, Lightheadedness - Respiratory Respiratory: denies: Cough, Sputum production, Wheezing, Snoring, Hemoptysis, Orthopnea, SOB at rest, SOB with exertion - Gastrointestinal Gastrointestinal: reports: Abdominal pain, Black stools, Nausea, Vomiting. denies: Abdominal distention, Constipation, Diarrhea, Change in bowel habits, Rectal bleeding, Bloody stools, Bile emesis, Emanuel blood emesis, Coffee grounds emesis - Genitourinary Genitourinary: denies: Dysuria, Frequency, Urgency, Hematuria, Incontinence, Flank pain, Nocturia, Urethral discharge - Musculoskeletal Musculoskeletal: denies: Muscle pain, Back pain, Muscle aches, Stiffness, Limited range of motion, Muscle weakness, Gout, Joint pain - Integumentary Integumentary: denies: Rash, Pruritis, Lesions, Dryness, Lumps, Acne, Pigment changes, Nail changes - Neurological Neurological: denies: General weakness, Focal weakness, Headache, Dizziness, Numbness, Memory problems, Pre-existing deficit, Abnormal gait, Seizures, Incoordination, Slurred speech - Psychiatric Psychiatric: denies: Depression, Anxiety, Suicidal, Delusions, Hallucinations, Homicidal - Endocrine Endocrine: denies: Polyuria, Polydypsia, Polyphagia, Intolerance to cold - Hematologic/Lymphatic Hematologic/Lymphatic: denies: Anemia, Bruising, Petechiae, Blood clots, Lymphadenopathy, Bleeding tendencies Exam - Vital Signs Reviewed Vital Signs: Yes Vital Signs: Vital Signs x48h Temp Pulse Resp BP Pulse Ox 06/14/19 15:57 36.4 C L 75 18 176/85 H 96 06/14/19 11:11 36.7 C 89 17 126/58 L 100 - Physical Exam General Appearance: positive: No acute distress, Alert. negative: Lethargic Eyes Bilateral: positive: Normal inspection, PERRL, EOMI, No lid inflammation ENT: positive: ENT inspection nml, Pharynx nml, No signs of dehydration. negative: Purulent nasal drainage Neck: positive: Nml inspection, Thyroid nml, No JVD, Trachea midline. negative: Thyromegaly, Lymphadenopathy (R), Lymphadenopathy (L), Stiff neck, Tracheal deviation Respiratory: positive: Chest non-tender, No respiratory distress. negative: Wheezes, Rales, Rhonchi Cardiovascular: positive: Regular rate & rhythm, No gallop, Systolic murmur. negative: Irregularly irregular, Extrasystoles, Tachycardia, Bradycardia, JVD present, Diastolic murmur Peripheral Pulses: positive: 2+ Abdomen: positive: Non-tender, No organomegaly, Abnml bowel sounds (reduced bowel sound). negative: Tenderness, Guarding, Rebound Back: positive: Nml inspection Skin: positive: Color nml, No rash, Warm, Dry. negative: Cyanosis, Diaphoresis, Pallor Extremities: positive: Non-tender, Full ROM, Nml appearance. negative: Calf tenderness, Pilo's sign/cords Neurologic/Psychiatric: positive: Oriented x3, Motor nml, Sensation nml. negative: Weakness, Sensory loss, Facial droop, Slurred/abnml speech, Depressed mood/affect Sepsis Event Note (H) - Evaluation Current Stage of Sepsis: Ruled out Conclusion/Plan - Problem List (1) SBO (small bowel obstruction) Conclusion/Plan: pt present N/V and abdominal pain. CT of abdomen reveals a high grade partial SBO due to a mass-like wall thickening, in the distal jejunum. order EKG, troponin, PT/INR. pt had ECHO about 3 months which reveals moderate/severe with valve area less than 1 cm sq. discussed with surgeon, order ECHO which is pending now. consult with surgeon NPO with IVF pain control PRN anti-emesis according to Ronald's criteria, Estimated Risk of Adverse Outcome with Non-cardiac Surgery is low risk Estimated Rate of Myocardial Infarction, Pulmonary Edema, Ventricular Fibrillation, Cardiac Arrest, or Complete Heart Block is 0.4% (2) Abdominal pain Conclusion/Plan: abdominal pain is likely caused by SBO, pain control. (3) Vomiting Conclusion/Plan: it is likely from SBO, anti-emesis PRN IVF lab monitor Qualifiers: Vomiting type: unspecified Vomiting Intractability: non-intractable Nausea presence: with nausea Qualified Code(s): R11.2 - Nausea with vomiting, unspecified (4) GI bleed Conclusion/Plan: occult test is positive, HGB is 13.8 now. consul with surgeon H&H monitor HGB IV of protonic (5) HTN (hypertension) Conclusion/Plan: stable, order PRN hydralazine. vital monitor (6) COPD (chronic obstructive pulmonary disease) Conclusion/Plan: stable, will resume home breath treatment meds. pt has allergy of fluticasone and salmeterol (7) Hypothyroidism Conclusion/Plan: will check TSH, will resume when PO allow. now pt is NPO (8) SHON (acute kidney injury) Conclusion/Plan: it is likely caused by dehydration from pt's recently N/V. Creatinine is 1.3 now from previous 1.0 hydration with IVF daily lab monitor (9) Full code status Conclusion/Plan: pt request full code - Lab Results Fish Bones: 06/14/19 19:06 06/14/19 12:08 Core Measures - Anticipated LOS I expect patient to be DC'd or transferred within 96 hours.: Yes - DVT/VTE - Prophylaxis VTE/DVT Device ordered at admit?: Yes VTE/DVT Prophylaxis med ordered at admit?: Yes
--- NOTE | 2019-06-14 17:44 | CONSULTATION NOTE ---
Referring Provider Name of Referring Provider:: Dr. Alfonso Consult Date: 06/14/19 Chief Complaint - Chief Complaint Chief Complaint: abd pain, N, V, wt loss History of Present Illness - Admitted From Admitted From:: ER - History Obtained From Records Reviewed: yes History obtained from: pt, family, records Exam Limitations: none - History of Present Illness HPI Comment/Other: 83 yo male with 3 month hx of progressively worsening intermittent post prandial periumibilical pain, N/V associated with 35# wt loss. Sx seem exacerbated by solid food but no specific food intolerance. He has been evaluated with a barium swallow esophagogram which was nl, and an UGI with SBFT showing what was thought to be narrowing of the first portion of the duodenum. An EGD in [place] apparently showed a large HH and H. pylori gastritis for which he has been on triple agent therapy now for 13 days, but no duodenal stenosis. He presented to the ER 4 days ago with exacerbation of sx and was thought to be perhaps suffering from medication side effects, and his meds were changed. Because of persistent and worsening sx of abd pain, N/V he returned to the ER today where evaluation included nl CBC, stool which was heme +, and an abd/pelvic CT showing a high grade partial SBO due to a mass in the distal jejunum. There is no evidence of mesenteric lymphadenopathy or liver mets. A small amount of free peritoneal fluid was noted along with a fat and ascites containing RIH. CXR shows NAD. Pt has had no prior abdominal surgery, no hx of sx referable to an inguinal hernia. There was no bowel seen within the hernia sac. Surgical consultation was requested. He has a FH CRC in a brother diagnosed in his 60s. He reports a favorable colonoscopy approx 10 yrs ago or more. No hematemesis, melena, or hematochezia. He noted one black stool this morning after taking PeptoBismol last night. His bms have been irregular over the past few months but no sanket diarrhea or constipation. No hx dysphagia or frequent heartburn. History - Past Medical History Cardiovascular: reports: Hypertension, Valve disorder (Echo in 02/2019 showed mod/severe with valve area less than 1 cm sq). denies: Congestive heart failure, Coronary artery disease, Angina, [place] Respiratory: reports: Other (interstitial lung disease s/p lung biopsy in the 1998) Endocrine/Autoimmune: reports: HyPOthyroidism GI: reports: None : reports: Benign prostate hypertrophy HEENT: reports: Other Psych: reports: None Musculoskeletal: reports: None Derm: reports: None MRSA Hx?: No - Past Surgical History General: reports: Other (open lung biopsy 1998) Ortho: reports: Shoulder arthroplasty Cardiovascular: - Family & Social History Family History Comment/Other: +colon cancer in brother Living arrangement: At home Living Situation: With spouse/s.o. - Substance History Use: Uses substance without health or social issues: NONE Meds/Allgy - Home Medications Home Medications: Ambulatory Orders Medication Instructions Recorded Confirmed Tamsulosin [Flomax] 0.4 mg PO DAILY 02/05/18 06/14/19 Umeclidinium Brm/Vilanterol Tr 1 inh PO DAILY 02/05/18 06/14/19 [Anoro Ellipta 62.5-25 Mcg INH] Levothyroxine Sodium 25 mcg PO QDAC 06/14/19 06/14/19 Mometasone Furoate [Asmanex] 1 puffs INH BID 06/14/19 06/14/19 Montelukast Sodium 10 mg PO QPM 06/14/19 06/14/19 Pantoprazole Sodium 20 mg PO QDAC 06/14/19 06/14/19 Prednisone 5 mg PO DAILY 06/14/19 06/14/19 Simvastatin 20 mg PO QPM 06/14/19 06/14/19 - Allergies Allergies/Adverse Reactions: Allergies Allergy/AdvReac Type Severity Reaction Status Date / Time fluticasone propionate * AdvReac Unknown Verified 06/14/19 11:11 [From Advair Diskus] salmeterol xinafoate * AdvReac Unknown Verified 06/14/19 11:11 [From Advair Diskus] Review of Systems - Constitutional Constitutional: reports: Poor appetite, Weight loss. denies: Fever, Chills - Cardiovascular Cariovascular: denies: Palpitations, Chest pain, Lightheadedness, Syncope - Gastrointestinal Gastrointestinal: reports: Abdominal pain, Change in bowel habits, Nausea, Vomiting, Poor appetite. denies: Abdominal distention, Rectal bleeding, Bloody stools, Coffee grounds emesis, Reflux/heartburn - Hematologic/Lymphatic Hematologic/Lymphatic: denies: Bruising, Blood clots, Bleeding tendencies - All Other Systems All Other Systems: reports: Reviewed and negative (or covered in HPI/PMH) Exam - Vital Signs Reviewed Vital Signs: Yes Vital Signs: Vital Signs x48h Temp Pulse Resp BP Pulse Ox 06/14/19 15:57 36.4 C L 75 18 176/85 H 96 06/14/19 11:11 36.7 C 89 17 126/58 L 100 - Physical Exam General Appearance: positive: Alert, Mild distress Eyes Bilateral: positive: Normal inspection, Conjunctivae nml, No scleral icterus ENT: positive: ENT inspection nml, Pharynx nml, No signs of dehydration Neck: positive: Nml inspection, No JVD, Trachea midline, Other (carotid upstrokes appear mildly diminished). negative: Lymphadenopathy (R), Lymphadenopathy (L) Respiratory: positive: Chest non-tender, No respiratory distress, Breath sounds nml. negative: Wheezes, Rales, Rhonchi Cardiovascular: positive: Regular rate & rhythm, No murmur, No gallop Abdomen: positive: Non-tender, No organomegaly, No distention, Abnml bowel sounds (high pitched, tympanitic), Other (tender reducible RIH) Back: positive: Nml inspection Skin: positive: Color nml, No rash, Warm, Dry. negative: Cyanosis Extremities: positive: Non-tender, No pedal edema. negative: Calf tenderness Neurologic/Psychiatric: positive: Oriented x3 Conclusion and Plan - Lab Results Microbiology Results 06/14/19 12:15 Stool Occult Blood - Final Laboratory Results 06/14/19 16:24: Troponin I High Sens 15.1 06/14/19 14:37: Hgb 13.5 L, Hct 41.6 L 06/14/19 14:04: Urine Color YELLOW, Urine Clarity CLEAR, Urine pH 8.5 H, Ur Specific [place] 1.015, Urine Protein NEGATIVE, Urine Glucose (UA) NEGATIVE, Urine Ketones TRACE, Urine Occult Blood NEGATIVE, Urine Nitrite NEGATIVE, Urine Bilirubin NEGATIVE, Urine Urobilinogen 0.2 (NORMAL), Ur Leukocyte Esterase NEGATIVE, Ur Microscopic Review NOT INDICATED, Urine Culture Comments NOT INDICATED 06/14/19 12:08: PT 15.2 H, INR 1.4 H 06/14/19 12:08: Sodium 137, Potassium 3.6, Chloride 96 L, Carbon Dioxide 32, Anion Gap 9.0, BUN 12, Creatinine 1.3 H, Estimated GFR (MDRD) 53 L, Glucose 146 H, Calcium 9.0, Total Bilirubin 0.9, AST 57 H, ALT 42, Alkaline Phosphatase 87, Total Protein 6.3 L, Albumin 3.5, Globulin 2.8, Albumin/Globulin Ratio 1.3, Lipase 28 06/14/19 12:08: WBC 7.8, RBC 4.64 L, Hgb 13.8 L, Hct 42.7, MCV 92.0, MCH 29.7, MCHC 32.3, RDW 13.6, Plt Count 251, MPV 10.6, Neut # (Auto) 5.4, Lymph # (Auto) 1.5, [place] # (Auto) 0.8, Eos # (Auto) 0.0, Baso # (Auto) 0.1, Absolute Nucleated RBC 0.00, Nucleated RBC % 0.0 - Diagnostic Imaging Results Diagnostic Imaging Results: positive: Final report reviewed, Read independently Diagnostic Imaging Results Comments: See HPI, CXR, barium swallow, UGI with SBFT and abd/pelvic CT all independently reviewed and findings noted. - Diagnosis Diagnosis: 1. High grade partial SBO due to mass/tumor in distal jejunum likely accounts for this symptoms. No evidence of complete obstruction/strangulation obstruction or acute abd at present. 2. Moderately severe , advanced age and interstitial lung disease increase his periop risk. 3. RIH, asymptomatic at present. This does not appear to be the cause of his SBO - Plan Plan: Agree with admission, IVF, NPO, further evaluation of his cardiopulmonary status with EKG and repeat echocardiogram in am. If his risk is felt to be acceptable, then proceed with laparoscopic assisted small bowel resection OW will need transfer to higher level of care for same. Discussed in detail with pt, , daughter and hospitalists, who are in agreement with this plan. His RIH can be observed for the time being. Thanks, (This was a 90+ minute evaluation the majority of which was spent in records review and counseling regarding the above mentioned diagnoses and proprosed treatment plans.)
[2019-06-14] MEDS: SODIUM CHLORIDE FLUSH 0.9% 10 ML SYRINGE IVP SCH (18:14)
[2019-06-14] MEDS: MORPHINE 2 MG/ML CARPUJECT IVP PRN (18:55)
[2019-06-14] MEDS: ONDANSETRON 4 MG/2 ML VIAL IVP PRN (18:56)
[2019-06-14] MEDS ORDERED: MOMETASONE FUROATE INH SCH (21:00)
[2019-06-14] MEDS ORDERED: MONTELUKAST 10 MG TABLET PO SCH (21:00)
[2019-06-14] MEDS: PANTOPRAZOLE 40 MG VIAL IVP SCH (22:07)
[2019-06-14] MEDS: SODIUM CHLORIDE FLUSH 0.9% 10 ML SYRINGE IVP PRN (22:07)
[2019-06-15] MEDS: MORPHINE 2 MG/ML CARPUJECT IVP PRN ×5 (00:24→19:49)
[2019-06-15] MEDS: SODIUM CHLORIDE FLUSH 0.9% 10 ML SYRINGE IVP SCH ×3 (00:28→16:40)
[2019-06-15 03:08] LABS: BASOPHILS # (AUTO) 0.1 10^3/uL (0.0-0.1); BASOPHILS % (AUTO) 0.9 %; EOSINOPHILS # (AUTO) 0.1 10^3/uL (0.0-0.7); EOSINOPHILS % (AUTO) 1.5 %; HGB - HEMOGLOBIN 12.5 g/dL (14.0-18.0); LYMPHOCYTES % (AUTO) 24.8 %; MEAN CORPUSCULAR HEMOGLOBIN 29.6 pg (27.0-31.0); MEAN CORPUSCULAR HGB CONC 31.7 g/dL (32.0-36.0); MEAN CORPUSCULAR VOLUME 93.1 fL (80.0-94.0); MONOCYTES # (AUTO) 1.2 10^3/uL (0.0-1.0); MONOCYTES % (AUTO) 14.9 %; NEUTROPHILS # (AUTO) 4.7 10^3/uL (1.5-6.6); NEUTROPHILS % (AUTO) 57.7 %; PLT - PLATELET COUNT 232 10^3/uL (130-450); RED BLOOD COUNT 4.23 10^6/uL (4.70-6.10); RED CELL DISTRIBUTION WIDTH 13.5 % (12.0-15.0); WHITE BLOOD COUNT 8.2 x10^3/uL (4.8-10.8)
[2019-06-15 03:17] LABS: CALCIUM 8.4 mg/dL (8.5-10.3); CREATININE 1.4 mg/dL (0.6-1.2); MAGNESIUM 2.4 mg/dL (1.7-2.8)
[2019-06-15] MEDS ORDERED: LEVOTHYROXINE 25 MCG TABLET PO SCH (07:00)
--- NOTE | 2019-06-15 07:15 | PHARMACY PROGRESS NOTE ---
- Best Possible Medication History Admit Date and Time: 06/14/19 2324 Processed by: Pharmacy Medication History completed: Yes Patient Interview: Completed Secondary Source(s): Prescription bottles, Spouse/Significant other, Other family member As the person ultimately responsible for medication therapy, providers are able to order a medication from an existing home medication list in [facility] via the "Reconcile Routine" prior to Confirmation of that medication by client support consultant. Such practice is discouraged except when the physician, in their clinical judgment, deems that a medical need exists for a medication without regard to previous use.
--- NOTE | 2019-06-15 07:23 | PROVIDER PROGRESS NOTE ---
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 Plan: complete cardiac evaluation, then surgery here or transfer for same elsewhere, based on results of this evaluation. Discussed with Dr. Hawkins, hospitalist, and Junior Kenney, anesthesia. - Current Meds Current Meds: Current Medications Generic Name Dose Route Start Last Admin Trade Name Freq PRN Reason Stop Dose Admin Morphine Sulfate 2 mg 06/14/19 16:56 06/15/19 00:24 Morphine (Carpuject) IVP 2 mg Q2HR PRN Administration Pain 8 to 10 Ondansetron HCl 4 mg 06/14/19 16:56 06/14/19 18:56 Zofran Inj IVP 4 mg Q6HR PRN Administration Nausea / Vomiting Pantoprazole Sodium 40 mg 06/14/19 21:00 06/14/19 22:07 Protonix IVP 40 mg BID MEI Administration Sodium Chloride 10 ml 06/14/19 16:56 06/14/19 22:07 Normal Saline Flush 0.9% IVP 20 ml PRN PRN Administration NEEDED PER PROVIDER ORDERS Sodium Chloride 10 ml 06/14/19 17:00 06/15/19 00:28 Normal Saline Flush 0.9% IVP Not Given 0100,0900,1700 MEI - Lab Result Fish Bone Diagrams: 06/15/19 03:00 06/15/19 03:00 - Diagnostic Imaging Results Diagnostic Imaging Results Comments: Echocardiogram pending - Additional Planning Condition/Complexity: Stable Plan Discussed with:: Patient, Other (hospitalist, anesthesia) Time Spent: 15-30 minutes Subjective - Subjective Patient Reports: Resting Comfortably, Abdominal Pain (mild queasiness but no vomiting; mild abd crampy pains; no flatus or stool since admission) Objective Vital Signs: Vital Signs - 24 hr 06/14/19 06/14/19 06/14/19 11:11 15:57 17:49 Temperature 36.7 C 36.4 C L 37.2 C Heart Rate 89 75 Heart Rate [ 73 Brachial] Respiratory 17 18 16 Rate Blood Pressure 126/58 L 176/85 H Blood Pressure 165/70 H [Right Brachial artery] O2 Saturation 100 96 94 06/14/19 06/14/19 06/15/19 20:00 23:42 01:50 Temperature 37.2 C 36.7 C Heart Rate Heart Rate [ 56 L 59 L 61 Brachial] Respiratory 17 18 Rate Blood Pressure Blood Pressure 157/53 H 172/64 H 167/66 H [Right Brachial artery] O2 Saturation 97 95 06/15/19 05:00 Temperature 36.9 C Heart Rate Heart Rate [ 63 Brachial] Respiratory 18 Rate Blood Pressure Blood Pressure 168/66 H [Right Brachial artery] O2 Saturation 96 Oxygen O2 Source Room air I&O (Last 24 Hrs): Intake and Output Totals x24h 06/13/19 06/14/19 06/15/19 23:59 23:59 23:59 Intake Total 1000 Balance 1000 General: Alert, Oriented x3, Cooperative Neck: Supple, No JVD Neuro: Alert Cardiovascular: Regular rate, Normal S1, Normal S2, No murmurs, Gallops Respiratory: Chest non-tender, No respiratory distress, Breath sounds nml Abdomen: Soft, No tenderness, No hepatospenomegaly, No masses, Other (hyperactive, tympanitic) Extremities: No edema, No tenderness/swelling - Results Results: Laboratory Results WBC 8.2 x10^3/uL (4.8-10.8) 06/15/19 03:00 RBC 4.23 10^6/uL (4.70-6.10) L 06/15/19 03:00 Hgb 12.5 g/dL (14.0-18.0) L 06/15/19 03:00 Hct 39.4 % (42.0-52.0) L 06/15/19 03:00 MCV 93.1 fL (80.0-94.0) 06/15/19 03:00 MCH 29.6 pg (27.0-31.0) 06/15/19 03:00 MCHC 31.7 g/dL (32.0-36.0) L 06/15/19 03:00 RDW 13.5 % (12.0-15.0) 06/15/19 03:00 Plt Count 232 10^3/uL (130-450) 06/15/19 03:00 MPV 10.0 fL (7.4-11.4) 06/15/19 03:00 Neut # (Auto) 4.7 10^3/uL (1.5-6.6) 06/15/19 03:00 Lymph # (Auto) 2.0 10^3/uL (1.5-3.5) 06/15/19 03:00 [place] # (Auto) 1.2 10^3/uL (0.0-1.0) H 06/15/19 03:00 Eos # (Auto) 0.1 10^3/uL (0.0-0.7) 06/15/19 03:00 Baso # (Auto) 0.1 10^3/uL (0.0-0.1) 06/15/19 03:00 Absolute Nucleated RBC 0.00 x10^3/uL 06/15/19 03:00 Nucleated RBC % 0.0 /100WBC 06/15/19 03:00 PT 15.2 secs (9.9-12.6) H 06/14/19 12:08 INR 1.4 (0.8-1.2) H 06/14/19 12:08 Sodium 138 mmol/L (135-145) 06/15/19 03:00 Potassium 3.7 mmol/L (3.5-5.0) 06/15/19 03:00 Chloride 103 mmol/L (101-111) 06/15/19 03:00 Carbon Dioxide 29 mmol/L (21-32) 06/15/19 03:00 Anion Gap 6.0 (6-13) 06/15/19 03:00 BUN 11 mg/dL (6-20) 06/15/19 03:00 Creatinine 1.4 mg/dL (0.6-1.2) H 06/15/19 03:00 Estimated GFR (MDRD) 48 (>89) L 06/15/19 03:00 Glucose 135 mg/dL (70-100) H 06/15/19 03:00 Calcium 8.4 mg/dL (8.5-10.3) L 06/15/19 03:00 Magnesium 2.4 mg/dL (1.7-2.8) 06/15/19 03:00 Total Bilirubin 0.9 mg/dL (0.2-1.0) 06/14/19 12:08 AST 57 IU/L (10-42) H 06/14/19 12:08 ALT 42 IU/L (10-60) 06/14/19 12:08 Alkaline Phosphatase 87 IU/L (42-121) 06/14/19 12:08 Troponin I High Sens 15.1 ng/L (2.3-19.7) 06/14/19 16:24 Total Protein 6.3 g/dL (6.7-8.2) L 06/14/19 12:08 Albumin 3.5 g/dL (3.2-5.5) 06/14/19 12:08 Globulin 2.8 g/dL (2.1-4.2) 06/14/19 12:08 Albumin/Globulin Ratio 1.3 (1.0-2.2) 06/14/19 12:08 Lipase 28 U/L (22-51) 06/14/19 12:08 TSH 5.57 uIU/mL (0.34-5.60) 06/15/19 03:00 Urine Color YELLOW 06/14/19 14:04 Urine Clarity CLEAR (CLEAR) 06/14/19 14:04 Urine pH 8.5 PH (5.0-7.5) H 06/14/19 14:04 Ur Specific [place] 1.015 (1.002-1.030) 06/14/19 14:04 Urine Protein NEGATIVE mg/dL (NEGATIVE) 06/14/19 14:04 Urine Glucose (UA) NEGATIVE mg/dL (NEGATIVE) 06/14/19 14:04 Urine Ketones TRACE mg/dL (NEGATIVE) 06/14/19 14:04 Urine Occult Blood NEGATIVE (NEGATIVE) 06/14/19 14:04 Urine Nitrite NEGATIVE (NEGATIVE) 06/14/19 14:04 Urine Bilirubin NEGATIVE (NEGATIVE) 06/14/19 14:04 Urine Urobilinogen 0.2 (NORMAL) E.U./dL (NORMAL) 06/14/19 14:04 Ur Leukocyte Esterase NEGATIVE (NEGATIVE) 06/14/19 14:04 Ur Microscopic Review NOT INDICATED 06/14/19 14:04 Urine Culture Comments NOT INDICATED 06/14/19 14:04 - Procedures Procedures: Procedures CATARAC PHACOEMULS/ASPIR (07/12/14) INSERT LENS AT CATAR EXT (07/12/14) Echocardiogram pending. Sepsis Event Note (H) - Evaluation Current Stage of Sepsis: Ruled out ABX Reporting Has patient been on IV antibiotics over the past 48 hours?: No
[2019-06-15] MEDS: PANTOPRAZOLE 40 MG VIAL IVP SCH ×2 (08:00→20:18)
[2019-06-15] MEDS ORDERED: LACTATED RINGERS 1,000 ML IV SCH (08:00)
[2019-06-15] MEDS: IPRATROPIUM 0.2 MG/ML NEB INH SCH ×3 (08:11→20:47)
[2019-06-15] MEDS: FORMOTEROL FUMARATE NEB 20 MCG/2 ML INH SCH ×2 (08:11→20:47)
[2019-06-15] MEDS: BUDESONIDE 0.5 MG/2 ML NEB INH SCH ×2 (08:14→20:47)
[2019-06-15] MEDS ORDERED: TAMSULOSIN 0.4 MG CAPSULE PO SCH (09:00)
[2019-06-15] MEDS: SODIUM CHLORIDE FLUSH 0.9% 10 ML SYRINGE IVP PRN ×4 (09:54→20:18)
[2019-06-15 11:37] LABS: HGB - HEMOGLOBIN 12.7 g/dL (14.0-18.0)
[2019-06-15] MEDS: hydrALAZINE INJ 20 MG/ML VIAL IVP PRN ×2 (11:39→19:34)
[2019-06-15] MEDS ORDERED: DIATR MEGLU/DIATRIZOATE SODIUM 120 ML BOTTLE PO ONE (12:00)
[2019-06-15] MEDS: D5.45NS W/20 MEQ KCL 1,000 ML IV SCH ×2 (12:22→21:44)
--- NOTE | 2019-06-15 14:13 | XRAY Report ---
Reason: distal jejunum obstruction Procedure Date: 06/15/2019 Accession Number: [id number] / [id number] Procedure: FL - Small Bowel Follow Through CPT Code: Final Report FULL RESULT: EXAM: ABDOMEN RADIOGRAPHY EXAM DATE: 06/15/2019 01:48 PM. CLINICAL HISTORY: Distal jejunum obstruction. COMPARISON: UGI 05/25/2019 9:17 AM. ABDOMEN/PELVIS W/ 06/14/2019 3:15 PM. TECHNIQUE: 1 view. Part of Gastrografin challenge. FINDINGS: Bowel Gas Pattern: Consistent with oral administration of Gastrografin, oral contrast material is seen in the stomach, presumed proximal duodenum and a dilated loop of small bowel in the midabdomen with a caliber of up to 5.2 cm. Notably, there is a small quantity of likely large bowel gas near the splenic flexure as well as in the proximal ascending colon. Other: None. IMPRESSION: Gastrografin challenge initial images as described. RADIA
[2019-06-15] MEDS: ONDANSETRON 4 MG/2 ML VIAL IVP PRN (16:40)
--- NOTE | 2019-06-15 17:10 | PROVIDER PROGRESS NOTE ---
Subjective - Prog Note Date Prog Note Date: 06/15/19 - Subjective Pt reports feeling: No change Subjective: pt still report abdominal pain, mainly located at upper middle right quadrant. pt denies fever, chill. nurse report pt vomiting once after pt was given gastric challenge contrast. Pt had a new ECHO done today morning, which reveals severe aortic stenosis. our surgeon think it is high risk to do surgery in our facility and asked me transfer for high level care. In the morning around 9am, I called [facility] for transfer pt for high level care. Surgeon Dr. Irene called me back. I report pt's medical conditions to doctor. he reviewed pt's CT study. he think pt has inflammation on his small bowel instead of mass. he recommend we do gastric chaparrita llenge to see if contrast can pass through. If this is still not working, he accept pt and pt can be transferred to him for service on tomorrow. i reported this condition to our surgeon and reported to pt and pt's family. Pt and pt's family understood the situation. Current Medications - Current Medications Current Medications: Active Medications Budesonide (Pulmicort) 0.5 mg INH RTBID [facility] Last Admin: 06/15/19 08:14 Dose: 0.5 mg Formoterol Fumarate (Perforomist) 20 mcg INH RTBID [facility] Last Admin: 06/15/19 08:11 Dose: 20 mcg Hydralazine HCl (Apresoline Inj) 10 mg IVP QID PRN PRN Reason: Hypertensive Emergency Last Admin: 06/15/19 11:39 Dose: 10 mg Potassium Chloride/Dextrose/Sod Cl (D5.45ns W/20 Meq Kcl) 1,000 mls @ 100 mls/hr IV .Q10H [facility] Last Admin: 06/15/19 12:22 Dose: 100 mls/hr Ipratropium [place] (Atrovent) 0.5 mg INH RTQ6H [facility] Last Admin: 06/15/19 08:11 Dose: 0.5 mg Morphine Sulfate (Morphine (Carpuject)) 2 mg IVP Q2HR PRN PRN Reason: Pain 8 to 10 Last Admin: 06/15/19 17:08 Dose: 2 mg Ondansetron HCl (Zofran Inj) 4 mg IVP Q6HR PRN PRN Reason: Nausea / Vomiting Last Admin: 06/15/19 16:40 Dose: 4 mg Pantoprazole Sodium (Protonix) 40 mg IVP BID [facility] Last Admin: 06/15/19 08:00 Dose: 40 mg Prochlorperazine Edisylate (Compazine Inj) 10 mg IVP Q6HR PRN PRN Reason: Nausea / Vomiting Sodium Chloride (Normal Saline Flush 0.9%) 10 ml IVP PRN PRN PRN Reason: NEEDED PER PROVIDER ORDERS Last Admin: 06/15/19 14:39 Dose: 10 ml Sodium Chloride (Normal Saline Flush 0.9%) 10 ml IVP 0100,0900,1700 [facility] Last Admin: 06/15/19 16:40 Dose: 10 ml Tamsulosin [Flomax] 0.4 mg PO DAILY 02/05/18 Umeclidinium Brm/Vilanterol Tr [Anoro Ellipta 62.5-25 Mcg INH] 1 inh PO DAILY 02/05/18 Levothyroxine Sodium 25 mcg PO QDAC 06/14/19 Mometasone Furoate [Asmanex] 1 puffs INH BID 06/14/19 Montelukast Sodium 10 mg PO QPM 06/14/19 Pantoprazole Sodium 20 mg PO QDAC 06/14/19 Prednisone 5 mg PO DAILY 06/14/19 Simvastatin 20 mg PO QPM 06/14/19 Objective - Vital Signs/Intake & Output Vital Signs: Vital Signs x48h Temp Pulse Resp BP BP BP Pulse Ox 06/15/19 15:56 37.0 C 58 L 17 169/67 H 97 06/15/19 12:09 160/64 H 06/15/19 12:06 37.0 C 64 22 150/55 H 94 06/15/19 12:00 63 146/53 H 06/15/19 11:45 59 L 173/60 H 06/15/19 11:41 61 164/72 H 06/15/19 11:39 173/63 H 06/15/19 11:18 173/63 H Intake & Output: Intake & Output 06/12/19 06/13/19 06/14/19 06/15/19 23:59 23:59 23:59 23:59 Intake Total 1000 1448 Balance 1000 1448 - Objective General Appearance: positive: No acute distress, Alert. negative: Lethargic Eyes Bilateral: positive: Normal inspection, PERRL, EOMI, No lid inflammation ENT: positive: ENT inspection nml, Pharynx nml, No signs of dehydration. negative: Purulent nasal drainage Neck: positive: Nml inspection, Thyroid nml, No JVD, Trachea midline. negative: Thyromegaly, Lymphadenopathy (R), Lymphadenopathy (L), Stiff neck, Tracheal deviation Respiratory: positive: Chest non-tender, No respiratory distress. negative: Wheezes, Rales, Rhonchi Cardiovascular: positive: Regular rate & rhythm, No gallop, Systolic murmur. negative: No murmur, Irregularly irregular, Extrasystoles, Tachycardia, Bradycardia, JVD present Peripheral Pulses: 2+ Radial (R), 2+ Radial (L), 2+ Dorsalis pedis (R), 2+ Dorsalis pedis (L) Abdomen: positive: Non-tender, No organomegaly, No distention, Abnml bowel sounds (hypoactive bowel sounds). negative: Tenderness, Guarding, Rebound Back: positive: Nml inspection Skin: positive: Color nml, No rash, Warm, Dry. negative: Cyanosis, Diaphoresis, Pallor Extremities: positive: Non-tender, Full ROM, Nml appearance. negative: Calf tenderness, Pilo's sign/cords Neurologic/Psychiatric: positive: Oriented x3, Motor nml, Sensation nml, Mood/affect nml. negative: Weakness, Sensory loss, Facial droop, Slurred/abnml speech, Depressed mood/affect - Lab Results Fish Bones: 06/15/19 11:34 06/15/19 03:00 Other Labs: Lab Results x24hrs 06/15/19 06/15/19 06/15/19 Range/Units 11:34 03:00 03:00 WBC (4.8-10.8) x10^3/uL RBC (4.70-6.10) 10^6/uL Hgb 12.7 L (14.0-18.0) g/dL Hct 39.2 L (42.0-52.0) % MCV (80.0-94.0) fL MCH (27.0-31.0) pg MCHC (32.0-36.0) g/dL RDW (12.0-15.0) % Plt Count (130-450) 10^3/uL MPV (7.4-11.4) fL Neut # (Auto) (1.5-6.6) 10^3/uL Lymph # (Auto) (1.5-3.5) 10^3/uL [place] # (Auto) (0.0-1.0) 10^3/uL Eos # (Auto) (0.0-0.7) 10^3/uL Baso # (Auto) (0.0-0.1) 10^3/uL Absolute Nucleated RBC x10^3/uL Nucleated RBC % /100WBC Sodium 138 (135-145) mmol/L Potassium 3.7 (3.5-5.0) mmol/L Chloride 103 (101-111) mmol/L Carbon Dioxide 29 (21-32) mmol/L Anion Gap 6.0 (6-13) BUN 11 (6-20) mg/dL Creatinine 1.4 H (0.6-1.2) mg/dL Estimated GFR (MDRD) 48 L (>89) Glucose 135 H (70-100) mg/dL Calcium 8.4 L (8.5-10.3) mg/dL Magnesium 2.4 (1.7-2.8) mg/dL TSH 5.57 (0.34-5.60) uIU/mL 06/15/19 06/14/19 Range/Units 03:00 19:06 WBC 8.2 (4.8-10.8) x10^3/uL RBC 4.23 L (4.70-6.10) 10^6/uL Hgb 12.5 L 13.0 L (14.0-18.0) g/dL Hct 39.4 L 40.7 L (42.0-52.0) % MCV 93.1 (80.0-94.0) fL MCH 29.6 (27.0-31.0) pg MCHC 31.7 L (32.0-36.0) g/dL RDW 13.5 (12.0-15.0) % Plt Count 232 (130-450) 10^3/uL MPV 10.0 (7.4-11.4) fL Neut # (Auto) 4.7 (1.5-6.6) 10^3/uL Lymph # (Auto) 2.0 (1.5-3.5) 10^3/uL [place] # (Auto) 1.2 H (0.0-1.0) 10^3/uL Eos # (Auto) 0.1 (0.0-0.7) 10^3/uL Baso # (Auto) 0.1 (0.0-0.1) 10^3/uL Absolute Nucleated RBC 0.00 x10^3/uL Nucleated RBC % 0.0 /100WBC Sodium (135-145) mmol/L Potassium (3.5-5.0) mmol/L Chloride (101-111) mmol/L Carbon Dioxide (21-32) mmol/L Anion Gap (6-13) BUN (6-20) mg/dL Creatinine (0.6-1.2) mg/dL Estimated GFR (MDRD) (>89) Glucose (70-100) mg/dL Calcium (8.5-10.3) mg/dL Magnesium (1.7-2.8) mg/dL TSH (0.34-5.60) uIU/mL ABX Reporting Has patient been on IV antibiotics over the past 48 hours?: No Sepsis Event Note (H) - Evaluation Current Stage of Sepsis: Ruled out Assessment/Plan - Problem List (1) SBO (small bowel obstruction) Impression: 1/2 order gastric challenge, and serial Xray, continue pain control, encourage pt walk. since pt did not present vomiting until pt was given gastric contrast, pt has no NG tube needed now. D5 1/2 NS IVF, NPO will closely monitor pt if any deteriorating signs: fever, rebound pain or g uarding, high distress, worsening pain. as far, pt did not present . pt present N/V and abdominal pain. CT of abdomen reveals a high grade partial SBO due to a mass-like wall thickening, in the distal jejunum. order EKG, troponin, PT/INR. pt had ECHO about 3 months which reveals moderate/severe with valve area less than 1 cm sq. discussed with surgeon, order ECHO which is pending now. consult with surgeon NPO with IVF pain control PRN anti-emesis according to Ronald's criteria, Estimated Risk of Adverse Outcome with Non-cardiac Surgery is low risk Estimated Rate of Myocardial Infarction, Pulmonary Edema, Ventricular Fibrillation, Cardiac Arrest, or Complete Heart Block is 0.4% (2) Abdominal pain Conclusion/Plan: abdominal pain is likely caused by SBO, pain control. (3) Vomiting Conclusion/Plan: it is likely from SBO, anti-emesis PRN IVF lab monitor (4) GI bleed Conclusion/Plan: 1/2 pt had no bowel movement. HGB is slight running down then stable now continue H&H occult test is positive, HGB is 13.8 now. consul with surgeon H&H monitor HGB IV of protonic (5) HTN (hypertension) Conclusion/Plan: stable, order PRN hydralazine. vital monitor (6) COPD (chronic obstructive pulmonary disease) Conclusion/Plan: stable, will resume home breath treatment meds. pt has allergy of fluticasone and salmeterol (7) Hypothyroidism Conclusion/Plan: 1/2 TSh is now, continue home levothyroxine will check TSH, will resume when PO allow. now pt is NPO (8) SHON (acute kidney injury) Conclusion/Plan: it is likely caused by dehydration from pt's recently N/V. Creatinine is 1.3 now from previous 1.0 hydration with IVF daily lab monitor (3) Vomiting Qualifiers: Vomiting type: unspecified Vomiting Intractability: non-intractable Nausea presence: with nausea Qualified Code(s): R11.2 - Nausea with vomiting, unspecified
[2019-06-15 19:21] LABS: HGB - HEMOGLOBIN 13.6 g/dL (14.0-18.0)
--- NOTE | 2019-06-15 19:54 | XRAY Report ---
Reason: GASTRO CHALLENGE Procedure Date: 06/15/2019 Accession Number: [id number] / [id number] Procedure: XR - No-Charge 1V Abdomen CPT Code: 10724 Final Report FULL RESULT: EXAM: ABDOMEN RADIOGRAPHY, GASTROGRAFIN CHALLENGE EXAM DATE: 06/15/2019 05:57 PM. CLINICAL HISTORY: GASTRO CHALLENGE. COMPARISON: - - - - - 06/15/2019 1:26 PM. TECHNIQUE: 2 view. FINDINGS/ IMPRESSION: Images obtained 4 hours after oral administration of Gastrografin, demonstrate dilated contrast opacified small bowel throughout the abdomen which is progressed from prior study, however, contrast is still not within the colon. The stomach is contrast opacified. Gastrografin challenge not complete. Recommend continued imaging. Otherwise, no significant change. RADIA
[2019-06-16] MEDS: PROCHLORPERAZINE 10 MG/2 ML VIAL IVP PRN ×2 (00:21→06:24)
[2019-06-16] MEDS: SODIUM CHLORIDE FLUSH 0.9% 10 ML SYRINGE IVP SCH ×2 (01:16→10:07)
--- NOTE | 2019-06-16 03:46 | XRAY Report ---
Reason: gastrografin challenge Procedure Date: 06/16/2019 Accession Number: [id number] / [id number] Procedure: XR - No-Charge 1V Abdomen CPT Code: 43794 Final Report FULL RESULT: EXAM: ABDOMEN RADIOGRAPHY EXAM DATE: 06/16/2019 01:52 AM. CLINICAL HISTORY: Gastrografin challenge. COMPARISON: NO CHARGE 1V ABDOMEN 06/15/2019 5:35 PM. TECHNIQUE: 1 view. Findings IMPRESSION: Contrast remains within the dilated small bowel loops and partially imaged stomach. Some of the contrast has progressed into the ascending colon since the prior exam. RADIA
[2019-06-16] MEDS: ONDANSETRON 4 MG/2 ML VIAL IVP PRN ×2 (04:46→12:14)
[2019-06-16] MEDS: hydrALAZINE INJ 20 MG/ML VIAL IVP PRN (05:22)
[2019-06-16 05:47] LABS: BASOPHILS # (AUTO) 0.1 10^3/uL (0.0-0.1); BASOPHILS % (AUTO) 0.5 %; EOSINOPHILS % (AUTO) 0.4 %; HGB - HEMOGLOBIN 14.2 g/dL (14.0-18.0); LYMPHOCYTES # (AUTO) 1.8 10^3/uL (1.5-3.5); LYMPHOCYTES % (AUTO) 19.1 %; MEAN CORPUSCULAR HGB CONC 32.7 g/dL (32.0-36.0); MEAN CORPUSCULAR VOLUME 91.8 fL (80.0-94.0); MEAN PLATELET VOLUME 10.3 fL (7.4-11.4); MONOCYTES # (AUTO) 1.2 10^3/uL (0.0-1.0); MONOCYTES % (AUTO) 12.1 %; NEUTROPHILS # (AUTO) 6.5 10^3/uL (1.5-6.6); NEUTROPHILS % (AUTO) 67.5 %; PLT - PLATELET COUNT 256 10^3/uL (130-450); RED BLOOD COUNT 4.73 10^6/uL (4.70-6.10); RED CELL DISTRIBUTION WIDTH 13.6 % (12.0-15.0); WHITE BLOOD COUNT 9.6 x10^3/uL (4.8-10.8)
[2019-06-16 05:59] LABS: CALCIUM 8.8 mg/dL (8.5-10.3); CREATININE 1.1 mg/dL (0.6-1.2)
[2019-06-16] MEDS: D5.45NS W/20 MEQ KCL 1,000 ML IV SCH (06:44)
[2019-06-16] MEDS: MORPHINE 2 MG/ML CARPUJECT IVP PRN (07:04)
[2019-06-16] MEDS: IPRATROPIUM 0.2 MG/ML NEB INH SCH ×3 (07:10→13:33)
[2019-06-16] MEDS: FORMOTEROL FUMARATE NEB 20 MCG/2 ML INH SCH (07:30)
[2019-06-16] MEDS: BUDESONIDE 0.5 MG/2 ML NEB INH SCH (07:30)
--- NOTE | 2019-06-16 08:47 | XRAY Report ---
Reason: GASTRO CHALLENGE// FINAL FILM Procedure Date: 06/16/2019 Accession Number: [id number] / [id number] Procedure: XR - No-Charge 1V Abdomen CPT Code: 70075 Final Report FULL RESULT: EXAM: ABDOMEN RADIOGRAPHY EXAM DATE: 06/16/2019 08:13 AM. CLINICAL HISTORY: GASTRO CHALLENGE// FINAL FILM. COMPARISON: NO CHARGE 1V ABDOMEN 06/16/2019 1:29 AM. TECHNIQUE: 1 view. FINDINGS IMPRESSION: 1. Interval mild decrease in dilated small bowel loops in the left upper mid abdomen with the large caliber dilated small bowel measuring 4.8 cm, previously 5.1 cm and interval increase oral contrast in the ascending colon without colonic dilatation visualized, suggesting interval slight decrease in partial small bowel obstruction. Recommend continued abdominal plain film follow-up. 2. No other significant interval changes recognized. RADIA
--- NOTE | 2019-06-16 08:52 | PROVIDER PROGRESS NOTE ---
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 Rec: transfer to facility which can perform surgery safely while optimally managing his severe aortic stenosis. Discussed again with pt, family and hospitalists who agree. - Current Meds Current Meds: Current Medications Generic Name Dose Route Start Last Admin Trade Name Freq PRN Reason Stop Dose Admin Budesonide 0.5 mg 06/15/19 07:00 06/16/19 07:30 Pulmicort INH Not Given RTBID MEI Formoterol Fumarate 20 mcg 06/15/19 07:00 06/16/19 07:30 Perforomist INH Not Given RTBID MEI Hydralazine HCl 10 mg 06/14/19 17:09 06/16/19 05:22 Apresoline Inj IVP 10 mg QID PRN Administration Hypertensive Emergency Potassium Chloride/Dextrose/Sod Cl 1,000 mls @ 100 mls/hr 06/15/19 12:00 06/16/19 06:44 D5.45ns W/20 Meq Kcl IV 100 mls/hr .Q10H MEI Administration Ipratropium Stewardson 0.5 mg 06/15/19 07:00 06/16/19 07:30 Atrovent INH Not Given RTQ6H MEI Morphine Sulfate 2 mg 06/14/19 16:56 06/16/19 07:04 Morphine (Carpuject) IVP 2 mg Q2HR PRN Administration Pain 8 to 10 Ondansetron HCl 4 mg 06/14/19 16:56 06/16/19 04:46 Zofran Inj IVP 4 mg Q6HR PRN Administration Nausea / Vomiting Pantoprazole Sodium 40 mg 06/14/19 21:00 06/15/19 20:18 Protonix IVP 40 mg BID MEI Administration Prochlorperazine Edisylate 10 mg 06/14/19 16:56 06/16/19 06:24 Compazine Inj IVP 10 mg Q6HR PRN Administration Nausea / Vomiting Sodium Chloride 10 ml 06/14/19 16:56 06/15/19 20:18 Normal Saline Flush 0.9% IVP 20 ml PRN PRN Administration NEEDED PER PROVIDER ORDERS Sodium Chloride 10 ml 06/14/19 17:00 06/16/19 01:16 Normal Saline Flush 0.9% IVP Not Given 0100,0900,1700 MEI - Lab Result Lab results reviewed: Yes Fish Bone Diagrams: 06/16/19 05:34 06/16/19 05:34 - Diagnostic Imaging Results Diagnostic Imaging Results: Final report reviewed, Discussed with radiologist, Read independently Diagnostic Imaging Results Comments: gastrograffin challenge shows persistent marked dilation of proximal small bowel, with small amount of contrast entering the colon after [address] with another radiologist who concurs with prior interpretation of a distal jejunal mass with probable adjacent mesenteric lymphadenopathy concerning for neoplasm causing a high grade partial SBO. - Additional Planning Condition/Complexity: Other (unchanged) Plan Discussed with:: Patient, Family, Other (hospitalists) Time Spent: 15-30 minutes Subjective - Subjective Patient Reports: Abdominal Pain (pt c/o continued crampy abd pains and intermittent N/V despite NPO status; no flatus or stool since 06/14 per pt.), Nausea Nursing Reports: Nausea, Pain, Vomitting Objective Vital Signs: Vital Signs - 24 hr 06/15/19 06/15/19 06/15/19 09:00 11:18 11:39 Temperature 36.6 C Heart Rate Heart Rate [ 58 L Brachial] Respiratory 12 Rate Blood Pressure 173/63 H Blood Pressure 180/70 H 173/63 H [Left Brachial artery] Blood Pressure [Right Brachial artery] O2 Saturation 96 06/15/19 06/15/19 06/15/19 11:41 11:45 12:00 Temperature Heart Rate Heart Rate [ 61 59 L 63 Brachial] Respiratory Rate Blood Pressure Blood Pressure 164/72 H 173/60 H [Left Brachial artery] Blood Pressure 146/53 H [Right Brachial artery] O2 Saturation 06/15/19 06/15/19 06/15/19 12:06 12:09 15:56 Temperature 37.0 C 37.0 C Heart Rate Heart Rate [ 64 58 L Brachial] Respiratory 22 17 Rate Blood Pressure 160/64 H Blood Pressure 150/55 H 169/67 H [Left Brachial artery] Blood Pressure [Right Brachial artery] O2 Saturation 94 97 06/15/19 06/15/19 06/15/19 19:25 19:34 19:39 Temperature 36.5 C Heart Rate Heart Rate [ 63 72 Brachial] Respiratory 18 Rate Blood Pressure 174/82 H Blood Pressure 174/82 H 171/74 H [Left Brachial artery] Blood Pressure [Right Brachial artery] O2 Saturation 94 06/15/19 06/15/19 06/15/19 19:44 19:59 20:04 Temperature Heart Rate Heart Rate [ 75 Brachial] Respiratory Rate Blood Pressure 158/78 H Blood Pressure 167/64 H 155/70 H [Left Brachial artery] Blood Pressure [Right Brachial artery] O2 Saturation 06/15/19 06/15/19 06/16/19 20:14 20:49 00:00 Temperature 36.4 C L Heart Rate 65 Heart Rate [ 75 88 Brachial] Respiratory 16 18 Rate Blood Pressure Blood Pressure 162/74 H 169/82 H [Left Brachial artery] Blood Pressure [Right Brachial artery] O2 Saturation 96 06/16/19 06/16/19 06/16/19 05:22 05:27 05:32 Temperature 37.1 C Heart Rate Heart Rate [ 85 Brachial] Respiratory 18 Rate Blood Pressure 184/73 H Blood Pressure 151/66 H 132/72 H [Left Brachial artery] Blood Pressure [Right Brachial artery] O2 Saturation 93 06/16/19 06/16/19 06/16/19 05:37 05:52 06:07 Temperature Heart Rate Heart Rate [ Brachial] Respiratory Rate Blood Pressure 132/72 H Blood Pressure 147/67 H 131/83 H [Left Brachial artery] Blood Pressure [Right Brachial artery] O2 Saturation 06/16/19 06/16/19 06/16/19 07:22 07:30 07:37 Temperature Heart Rate 85 Heart Rate [ Brachial] Respiratory 26 H Rate Blood Pressure Blood Pressure 134/87 H 112/69 [Left Brachial artery] Blood Pressure [Right Brachial artery] O2 Saturation 06/16/19 07:50 Temperature 36.6 C Heart Rate Heart Rate [ 89 Brachial] Respiratory 20 Rate Blood Pressure Blood Pressure 148/66 H [Left Brachial artery] Blood Pressure [Right Brachial artery] O2 Saturation 92 Oxygen O2 Source Room air I&O (Last 24 Hrs): Intake and Output Totals x24h 06/14/19 06/15/19 06/16/19 23:59 23:59 23:59 Intake Total 1000 2384.667 900 Output Total 150 420 Balance 1000 2234.667 480 General: Alert, Oriented x3, Moderate distress Abdomen: Soft, No tenderness, No hepatospenomegaly, No masses, Other (high pitched, hyperactive bowel tones) Extremities: No edema, No tenderness/swelling - Results Results: Laboratory Results WBC 9.6 x10^3/uL (4.8-10.8) 06/16/19 05:34 RBC 4.73 10^6/uL (4.70-6.10) 06/16/19 05:34 Hgb 14.2 g/dL (14.0-18.0) 06/16/19 05:34 Hct 43.4 % (42.0-52.0) 06/16/19 05:34 MCV 91.8 fL (80.0-94.0) 06/16/19 05:34 MCH 30.0 pg (27.0-31.0) 06/16/19 05:34 MCHC 32.7 g/dL (32.0-36.0) 06/16/19 05:34 RDW 13.6 % (12.0-15.0) 06/16/19 05:34 Plt Count 256 10^3/uL (130-450) 06/16/19 05:34 MPV 10.3 fL (7.4-11.4) 06/16/19 05:34 Neut # (Auto) 6.5 10^3/uL (1.5-6.6) 06/16/19 05:34 Lymph # (Auto) 1.8 10^3/uL (1.5-3.5) 06/16/19 05:34 [place] # (Auto) 1.2 10^3/uL (0.0-1.0) H 06/16/19 05:34 Eos # (Auto) 0.0 10^3/uL (0.0-0.7) 06/16/19 05:34 Baso # (Auto) 0.1 10^3/uL (0.0-0.1) 06/16/19 05:34 Absolute Nucleated RBC 0.00 x10^3/uL 06/16/19 05:34 Nucleated RBC % 0.0 /100WBC 06/16/19 05:34 PT 15.2 secs (9.9-12.6) H 06/14/19 12:08 INR 1.4 (0.8-1.2) H 06/14/19 12:08 Sodium 138 mmol/L (135-145) 06/16/19 05:34 Potassium 3.7 mmol/L (3.5-5.0) 06/16/19 05:34 Chloride 105 mmol/L (101-111) 06/16/19 05:34 Carbon Dioxide 27 mmol/L (21-32) 06/16/19 05:34 Anion Gap 6.0 (6-13) 06/16/19 05:34 BUN 11 mg/dL (6-20) 06/16/19 05:34 Creatinine 1.1 mg/dL (0.6-1.2) 06/16/19 05:34 Estimated GFR (MDRD) 64 (>89) L 06/16/19 05:34 Glucose 147 mg/dL (70-100) H 06/16/19 05:34 Calcium 8.8 mg/dL (8.5-10.3) 06/16/19 05:34 Magnesium 2.4 mg/dL (1.7-2.8) 06/15/19 03:00 Total Bilirubin 0.9 mg/dL (0.2-1.0) 06/14/19 12:08 AST 57 IU/L (10-42) H 06/14/19 12:08 ALT 42 IU/L (10-60) 06/14/19 12:08 Alkaline Phosphatase 87 IU/L (42-121) 06/14/19 12:08 Troponin I High Sens 15.1 ng/L (2.3-19.7) 06/14/19 16:24 Total Protein 6.3 g/dL (6.7-8.2) L 06/14/19 12:08 Albumin 3.5 g/dL (3.2-5.5) 06/14/19 12:08 Globulin 2.8 g/dL (2.1-4.2) 06/14/19 12:08 Albumin/Globulin Ratio 1.3 (1.0-2.2) 06/14/19 12:08 Lipase 28 U/L (22-51) 06/14/19 12:08 TSH 5.57 uIU/mL (0.34-5.60) 06/15/19 03:00 Urine Color YELLOW 06/14/19 14:04 Urine Clarity CLEAR (CLEAR) 06/14/19 14:04 Urine pH 8.5 PH (5.0-7.5) H 06/14/19 14:04 Ur Specific Fenton 1.015 (1.002-1.030) 06/14/19 14:04 Urine Protein NEGATIVE mg/dL (NEGATIVE) 06/14/19 14:04 Urine Glucose (UA) NEGATIVE mg/dL (NEGATIVE) 06/14/19 14:04 Urine Ketones TRACE mg/dL (NEGATIVE) 06/14/19 14:04 Urine Occult Blood NEGATIVE (NEGATIVE) 06/14/19 14:04 Urine Nitrite NEGATIVE (NEGATIVE) 06/14/19 14:04 Urine Bilirubin NEGATIVE (NEGATIVE) 06/14/19 14:04 Urine Urobilinogen 0.2 (NORMAL) E.U./dL (NORMAL) 06/14/19 14:04 Ur Leukocyte Esterase NEGATIVE (NEGATIVE) 06/14/19 14:04 Ur Microscopic Review NOT INDICATED 06/14/19 14:04 Urine Culture Comments NOT INDICATED 06/14/19 14:04 - Procedures Procedures: Procedures CATARAC PHACOEMULS/ASPIR (07/12/14) INSERT LENS AT CATAR EXT (07/12/14) Sepsis Event Note (H) - Evaluation Current Stage of Sepsis: Ruled out ABX Reporting Has patient been on IV antibiotics over the past 48 hours?: No
[2019-06-16] MEDS: PANTOPRAZOLE 40 MG VIAL IVP SCH (10:07)
--- NOTE | 2019-06-16 12:01 | DISCHARGE SUMMARY ---
"Discharge Summary Admit Date: 06/14/19 Discharge Date: 06/16/19 Discharging Provider: Roly Cabrera Primary Care Provider: Kali Payan Condition at Discharge: Serious Discharge Facility Name: [facility] - DIAGNOSES Admission Diagnoses: (1) SBO (small bowel obstruction) (2) Abdominal pain (3) Vomiting (4) GI bleed (5) HTN (hypertension) (6) COPD (chronic obstructive pulmonary disease) (7) Hypothyroidism (8) SHON (acute kidney injury) Discharge Diagnoses with Status of Each Condition: (1) SBO (small bowel obstruction) pt continue to present N/V and abdominal pain. CT of abdomen reveals a high grade partial SBO due to a mass-like wall thickening, in the distal jejunum. pt declined NG tube reported the case to [facility] surgeon Dr. Hood, hospitalist including pt's SBO and severe aortic stenosis with preserved EF. both accepted pt. pt will be transferred to [facility] for high level of care (2) Abdominal pain pt present abdominal pain. pt has Pain control medication. The pain was likely from SBO, (3) Vomiting pt declined NG tube. Pt present N/V. pt has antiemetic PRN (4) GI bleed HGB is stable and better. today HGB is 14.2. pt denies see GI bleeding, but occult stool test is positive (5)moderate to severe aortic stenosis with preserved EF pt is asymptomatic. pt denies chest pain, palpitation, shortness of breath repeated ECHO on yesterday reveals moderate to severe aortic stenosis with normal EF and without pulmonary hypertension. Report pt's above conditions to [facility] two physicians. pt is accepted for high level care in [facility] (6) HTN (hypertension) stable (7) COPD (chronic obstructive pulmonary disease) stable (8) Hypothyroidism TSH is normal (9) SHON (acute kidney injury) resolved. creatinine is 1.1 today. - HPI History of Present Illness: Mr. 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 pt report he vomit immediately after drink small water. He report upper quadrant abdominal pain as well. He did not recognize he has rectal bleeding but guaiac test is positive in ER. Per pt's daughter report, an EGD done [place] apparently showed a large HH and H. pylori gastritis, and he was prescribed on triple agents therapy now for nearly two weeks. pt denies fever,chill, shortness or breath, chest pain. today CT of abdomen/pelvis reveals abd/pelvic a high grade partial SBO due to a mass-like wall thickening in the distal jejunum, worrisome for malignancy, and small free mesenteric fluid. There is no evidence of mesenteric lymphadenopathy or liver mass. CXR reveals no acute cardiopulmonary abnormality. route Lab test reveals INR is 1.4, creatinine 1.3, and HGB is 13.8. surgeon was called for consult. pt is admitted for above medical reason. refer from Dr. Tomi Mejia's consult HPI as the below 83 yo male with 3 month hx of progressively worsening intermittent post prandial periumibilical pain, N/V associated with 35# wt loss. Sx seem exacerbated by solid food but no specific food intolerance. He has been evaluated with a barium swallow esophagogram which was nl, and an UGI with SBFT showing what was thought to be narrowing of the first portion of the duodenum. An EGD in [place] apparently showed a large HH and H. pylori gastritis for which he has been on triple agent therapy now for 13 days, but no duodenal stenosis. He presented to the ER 4 days ago with exacerbation of sx and was thought to be perhaps suffering from medication side effects, and his meds were changed. Because of persistent and worsening sx of abd pain, N/V he returned to the ER today where evaluation included nl CBC, stool which was heme +, and an abd/pelvic CT showing a high grade partial SBO due to a mass in the distal jejunum. There is no evidence of mesenteric lymphadenopathy or liver mets. A small amount of free per itoneal fluid was noted along with a fat and ascites containing RIH. CXR shows NAD. Pt has had no prior abdominal surgery, no hx of sx referable to an inguinal hernia. There was no bowel seen within the hernia sac. Surgical consultation was requested. He has a FH CRC in a brother diagnosed in his 60s. He reports a favorable colonoscopy approx 10 yrs ago or more. No hematemesis, melena, or hematochezia. He noted one black stool this morning after taking PeptoBismol last night. His bms have been irregular over the past few months but no sanket diarrhea or constipation. No hx dysphagia or frequent heartburn. - CONSULTS | PROCEDURES Consultations: Dr. Tomi Mejia Procedures: no procedure in [facility] - HOSPITAL COURSE Hospital Course: pt was admitted for uncontrolled vomiting. pt was found to have SBO on CT of abdomen/pelvis which reveals a mass-like wall thickening, in the distal jejunum. Consulted with hospital surgeon, he recommended to be transferred to other hospital for high level of care because pt's heart complication. pt had one ECHO done about three months ago, and repeated ECHO done on yesterday reveals moderate to severe aortic stenosis with normal EF and without pulmonary hypertension. otherwise pt is hemodynamic stable now. the case was reported to [facility] surgeon Dr. Hood, hospitalist . both physicians accepted pt. pt will be transferred to [facility] for high level of care. Thank both physicians! the detail hospital course and diagnosis as the below (1) SBO (small bowel obstruction) pt continue to present N/V and abdominal pain. CT of abdomen reveals a high grade partial SBO due to a mass-like wall thickening, in the distal jejunum. pt declined NG tube reported the case to [facility] surgeon Dr. Hood, hospitalist including pt's SBO and severe aortic stenosis with preserved EF. both accepted pt. pt will be transferred to [facility] for high level of care (2) Abdominal pain pt present abdominal pain. pt has Pain control medication. The pain was likely from SBO, (3) Vomiting pt declined NG tube. Pt present N/V. pt has antiemetic PRN (4) GI bleed HGB is stable and better. today HGB is 14.2. pt denies see GI bleeding, but occult stool test is positive (5)severe aortic stenosis with preserved EF pt is asymptomatic. pt denies chest pain, palpitation, shortness of breath repeated ECHO on yesterday reveals moderate to severe aortic stenosis with normal EF and without pulmonary hypertension. Report pt's above conditions to [facility] two physicians. pt is accepted for high level care in [facility] (6) HTN (hypertension) stable (7) COPD (chronic obstructive pulmonary disease) stable (8) Hypothyroidism TSH is normal (9) SHON (acute kidney injury) resolved. creatinine is 1.1 today. - ALLERGIES Allergies/Adverse Reactions: Allergies Allergy/AdvReac Type Severity Reaction Status Date / Time fluticasone propionate * AdvReac Unknown Verified 06/14/19 11:11 [From Advair Diskus] salmeterol xinafoate * AdvReac Unknown Verified 06/14/19 11:11 [From Advair Diskus] - MEDICATIONS Home Medications: Ambulatory Orders Medication Instructions Recorded Confirmed Tamsulosin [Flomax] 0.4 mg PO DAILY 02/05/18 06/14/19 Umeclidinium Brm/Vilanterol Tr 1 inh PO DAILY 02/05/18 06/14/19 [Anoro Ellipta 62.5-25 Mcg INH] Levothyroxine Sodium 25 mcg PO QDAC 06/14/19 06/14/19 Mometasone Furoate [Asmanex] 1 puffs INH BID 06/14/19 06/14/19 Montelukast Sodium 10 mg PO QPM 06/14/19 06/14/19 Pantoprazole Sodium 20 mg PO QDAC 06/14/19 06/14/19 Prednisone 5 mg PO DAILY 06/14/19 06/14/19 Simvastatin 20 mg PO QPM 06/14/19 06/14/19 - PHYSICAL EXAM AT DISCHARGE General Appearance: positive: Alert, Mild distress. negative: Lethargic Eyes Bilateral: positive: Normal inspection, PERRL, EOMI, No lid inflammation ENT: positive: ENT inspection nml, Pharynx nml, No signs of dehydration. negative: Purulent nasal drainage Neck: positive: Nml inspection, Thyroid nml, No JVD, Trachea midline. negative: Thyromegaly, Lymphadenopathy (R), Lymphadenopathy (L), Stiff neck, Tracheal deviation Respiratory: positive: Chest non-tender, No respiratory distress. negative: Wheezes, Rales, Rhonchi Cardiovascular: positive: Regular rate & rhythm, Systolic murmur. negative: Irregularly irregular, Extrasystoles, Tachycardia, Bradycardia Peripheral Pulses: positive: 2+ Abdomen: positive: No organomegaly, No distention, Abnml bowel sounds (hypoactive bowel sound). negative: Tenderness, Guarding, Rebound Back: positive: Nml inspection Skin: positive: Color nml, No rash, Warm, Dry. negative: Cyanosis, Diaphoresis, Pallor Extremities: positive: Non-tender, Full ROM, Nml appearance. negative: Calf tenderness, Pilo's sign/cords Neurologic/Psychiatric: positive: Oriented x3, Motor nml, Sensation nml. negati ve: Weakness, Sensory loss, Facial droop, Slurred/abnml speech, Depressed mood/affect - LABS Result Diagrams: 06/16/19 05:34 06/16/19 05:34 - DIAGNOSTIC IMAGING Diagnostic Imaging Results Comments: EXAM: CT ABDOMEN AND PELVIS EXAM DATE: 06/14/2019 03:22 PM. CLINICAL HISTORY: IV only, abd pain, vomiting. COMPARISONS: UGI 05/25/2019 9:17 AM. TECHNIQUE: Routine helical CT imaging was performed through the abdomen and pelvis. IV contrast: OPTI 320 100ML. Enteric contrast: No. Reconstructions: Coronal and sagittal. In accordance with CT protocol optimization, one or more of the following dose reduction techniques were utilized for this exam: automated exposure control, adjustment of mA and/or KV based on patient size, or use of iterative reconstructive technique. FINDINGS: Lung Bases: Bibasilar atelectasis. Liver: Normal. No masses. Gallbladder/Bile Ducts: Unremarkable. Spleen: Calcified granulomas. Pancreas: Normal. Adrenal Glands: Normal. Kidneys: No masses or hydronephrosis. Peritoneal Cavity/Bowel: Small bowel obstruction, with transition point in the distal jejunum due to circumferential mass-like wall thickening approximately 5.5 cm in length (axial series 3, image 62). Small mesenteric free fluid. The distal small bowel is decompressed. Pelvic Organs: The bladder is lobulated, query chronic outlet obstruction. Vasculature: Severe atherosclerotic calcification, without evidence of aneurysm or dissection. Bones: Degenerative changes. Other: Right inguinal hernia containing fat and ascites. IMPRESSION: Small bowel obstruction with transition point in distal jejunum due to circumferential mass-like wall thickening, worrisome for malignancy. Small free mesenteric fluid. RADIA The call report notification system was initiated by Dr. Shonna Cardenas at 03:36 PM on 06/14/2019. The above findings were discussed with nurse Candida by Dr. Shonna Cardenas at 03:45 PM on 06/14/2019. Tub Attendant: Reading Radiologist: Shonna Cardenas MD Releasing Radiologist: Shonna Cardenas MD Released Date Time: 06/14/191539 Report 39 cc: Kali Fajardo MD ([facility]); Zelalem Donato MD ED - SEPSIS Current Stage of Sepsis: Ruled out - FOLLOW UP Follow Up: transfer to high level care on [facility] - TIME SPENT Time Spent in Discharge (Minutes): 45"
[2019-06-16 13:18] VITALS: BP 180/64
== END 2019-06-16 14:08 | disposition short-term general hospital (02) | DRG 374 ==
LOC: ED 10:51 → MS2 16:56
PROVIDERS: ADMIT Nurse Practitioner Gerontology; ATTEND Nurse Practitioner Gerontology
DX: K63.9 Disease of intestine, unspecified (principal); K29.70 Gastritis, unspecified, without bleeding; C17.1 Malignant neoplasm of jejunum; K29.71 Gastritis, unspecified, with bleeding; N17.9 Acute kidney failure, unspecified; J84.9 Interstitial pulmonary disease, unspecified; I10 Essential (primary) hypertension; K44.9 Diaphragmatic hernia without obstruction or gangrene; B96.81 Helicobacter pylori [H. pylori] as the cause of diseases classified elsewhere; J44.9 Chronic obstructive pulmonary disease, unspecified; E03.9 Hypothyroidism, unspecified; I35.0 Nonrheumatic aortic (valve) stenosis; N40.0 Benign prostatic hyperplasia without lower urinary tract symptoms; K40.90 Unilateral inguinal hernia, without obstruction or gangrene, not specified as recurrent; R63.4 Abnormal weight loss; Z80.0 Family history of malignant neoplasm of digestive organs; Z68.23 Body mass index [BMI] 23.0-23.9, adult; Z79.899 Other long term (current) drug therapy; Z87.891 Personal history of nicotine dependence; Z79.52 Long term (current) use of systemic steroids; Z88.8 Allergy status to other drugs, medicaments and biological substances
CPT/HCPCS: 36415; 71045; 74177; 74250; 80048; 80053; 81003; 82272; 83690; 83735; 84443; 84484; 85014; 85018; 85025; 85610; 93005; 93306; 94640; 96361; 96374; 96375; 99284; 99285; A9270; J2765; J7120; J7626; Q9963; Q9967; 74018; 81001; 87086

== ENCOUNTER 2019-06-16 14:02 | Outpatient (CLI) | payer MEDICARE, OTHER | END 2019-06-16 14:03 | disposition short-term general hospital (02) | LOC: EMS 14:02 | PROVIDERS: ATTEND Surgery | DX: K92.2 Gastrointestinal hemorrhage, unspecified (principal); R19.00 Intra-abdominal and pelvic swelling, mass and lump, unspecified site | CPT/HCPCS: A0425; A0426 ==

== ENCOUNTER 2019-07-31 11:35 | Outpatient (CLI) | payer MEDICARE, OTHER ==
--- NOTE | 2019-07-31 19:23 | CONSULTATION NOTE ---
Palliative Care Consultation - Referral Referring Provider: Dr. Fajardo Time of Visit: [id number] Referral setting: Home Referral Reason: Lymphoma/SBO/Pain of neoplastic origin/Goals of Care - Information Sources Records reviewed: RN notes reviewed, Previous records reviewed History/Review of Systems obtained from: Patient, Family (daughter Sofia offered most of HX; Jackelyn present for visit), Nursing Exam limitations: Clinical condition (patient drifting in and out; but was alert and orientated to offer exam/goals) - History of Present Illness Brief History of Present Illness: This is an 83-year-old gentleman who presented and February, with reported taste changes, weight loss of thirty pounds, abdominal pain and ongoing regurgitation. In the context of his work-up, he did have an EGD, which showed H. pylori gastritis, and was started on treatment of a triple antibiotics. He also been evaluated with a small bowel follow-through through. He initially presented to the ED during the holidays, the thought was he was not tolerating his antibiotics, they changed those up. But he returned a few days later on 06/14 and was found to have on his CT scan of the abdomen pelvis a small bowel obstruction with a transition point in the distal jejunum with a circumferential mass, wall thickening, and worrisome for malignancy. He was admitted for a couple days, but given the setting of his severe aortic stenosis, he was transferred to [facility]. At [facility] he did undergo an exploratory lap with small bowel resection with anastomosis, excision of a mesenteric mass, and appendectomy on 06/18/2019. 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 His surgery was complicated by malnutrition and he has been on TPN, and he had developed recurrent abscesses with returns back in surgery for I&D, he also developed acute pulmonary embolism and is on therapeutic Lovenox. They did trial NG feedings, he was not able to tolerate those. He has had a continuous weight loss, and unfortunately on follow-up abdominal CT scan on 07/20 after 34 days in the hospital, was found to have recurrence of his lymphoma and a new area of obstruction around the mid distal ileum as well as right hydronephrosis from probable tumor spread. Understandably both patient and family are reeling, from his original diagnosis told that he probably had several years, and would be a candidate for treatment, to few weeks to months, and then finally to "days", it made for difficult transition planning to home setting. He did have a little fortune to follow-up with Dr. Perez, who did take the time to help elicit his goals, which were to go home and get his affairs in order. In order to do this, they did offer him TPN and a PICC line, he is being supported by [facility] for his TPN. The goal was to support him for as long as possible, recognizing his disease was to progress, and at some point the decision would be withdraw the TPN. There was some confusion at the beginning, as he was originally referred to hospice, with equipment delivered. They are paying rental fees until transitions to hospice. Palliative care meeting with patient and family to work on pain and symptom management. Also to continue the goals of care conversation. Unfortunately he continues to have a series of complications, he been having frequent urination, and in placement of a Fonseca catheter, has had to be replaced daily either because of blockage, leakage, and placed again today. Patient's urine is quite hazy, he has having spasms, suspect patient has a UTI complicating his ability to tolerate the catheter. It does make things much easier though for his care, as he is functionally declining, and becoming more fatigued. Patient has not had any vomiting, he is having progressive abdominal pain, cramping, though his abdomen is soft that he does have some transit bowel tones. He has not had a bowel movement since 07/18/2019, did have a "smear on 07/20. He has needed progressive morphine, they did have to change the concentration, so it is 10 mg per 5 mils. He is getting TPN 2100 L from 4:30 PM to 8 AM in the morning. He is quite weak, previously at baseline was actually quite strong, with ability to golf several times a week as well as working out regularly. Patient does perceive himself is dying, was hopeful for better quality as well as quantity of life, there is seeking direction when to transition to hospice and withdraw TPN as well as improve his pain management.. Medical/Surgical History - Past Medical History Cardiovascular: reports: Hypertension Respiratory: reports: COPD, Other (ILD) Neuro: None Endocrine/Autoimmune: reports: None GI: reports: Other (SBO) : reports: Benign prostate hypertrophy, Renal insuffiency, Indwelling catheter (replaced today with 16 fr) Psych: reports: None Musculoskeletal: reports: Other (PMR) Derm: reports: Other (wound r/t abcess at umbilical/laporatomy incision) MRSA Hx?: No - Past Surgical History General: reports: EGD, Other (small bowel resection 06/18) Ortho: reports: Shoulder arthroplasty Cardiovascular: - Substance History Use: Uses substance without health or social issues: NONE, Tobacco (hx) Social History - Living Situation Living arrangement: At home Living Situation: With spouse/s.o., With family Support System: Patient presents with somewhat of a complex social situation and history. Patient currently being cared for by his daughter Funmilayo, who has been a good advocate and overseeing his care needs and working with team. She has taken FMLA, from her work at [employer] as a curator of education. She does have a sense of how the healthcare system works, and has been working hard and keeping all the complex instructions/medications etc. in order. His has multiple health problems, is not able to participate in the care but is present and defers to daughter but is in agreement and supportive. Her brother lives with him, is developmentally disabled at a 10-year-old level, concern regarding long-term plan for him, as patient had been assisting and will need ongoing care. He has another son, who is estranged, daughter has reached out to let him know of patient's imminent decline. Patient's other son Bronson who was present over weekend to help, there is concern for volatility, he is on the spectrum, so far has been participatory but there is concern as far as how he perceives things [id number] and how he will continue to do with this process. At this point in time they have not needed to call or intervene, but is a significant safety risk. Family History - Family History Family History: Mother: , CAD, Father: , CAD Medications/Allergies - Medications Home Medications: Ambulatory Orders Medication Instructions Recorded Confirmed Umeclidinium Brm/Vilanterol Tr 1 inh PO DAILY 02/05/18 07/31/19 [Anoro Ellipta 62.5-25 Mcg INH] Pantoprazole Sodium 20 mg PO BID 06/14/19 07/31/19 Dexamethasone 4 mg PO BID 07/31/19 07/31/19 Enoxaparin [Lovenox] 120 mg SQ DAILY 07/31/19 07/31/19 Haloperidol Oral Soln [Haldol Oral 0.5 mg PO Q4HR PRN 07/31/19 07/31/19 Soln] LORazepam [Lorazepam INTENSOL] 0.5 mg PO Q6HR PRN 07/31/19 07/31/19 Morphine Sulfate 2.5 mg PO .Q2 PRN 07/31/19 07/31/19 Oxybutynin [Ditropan] 5 mg PO DAILY 07/31/19 07/31/19 Sulfamethox/Trimeth 800/160 1 tab PO BID MDD liquid form x 5 07/31/19 07/31/19 [Bactrim Ds] days fentaNYL [Fentanyl 12mcg patch] 12 mcg TOP .Q3DAYS 07/31/19 07/31/19 Simethicone [Gas Relief] 80 mg PO Q6HR PRN 08/01/19 08/01/19 - Allergies Allergies/Adverse Reactions: Allergies Allergy/AdvReac Type Severity Reaction Status Date / Time fluticasone propionate * AdvReac Unknown Verified 06/14/19 11:11 [From Advair Diskus] salmeterol xinafoate * AdvReac Unknown Verified 06/14/19 11:11 [From Advair Diskus] Review of Systems - Constitutional Constitutional: reports: Fatigue, Weight loss. denies: Fever, Chills - Ears, Nose & Throat Ears, Nose & Throat: reports: Hearing loss, Hoarseness, Dry mouth, Other (some coating on tongue/no buccal lesions but high risk for candidiasis) - Cardiovascular Cardiovascular: reports: Exertional dyspnea, Decr. exercise tolerance, Other - Respiratory Respiratory: denies: SOB at rest - Gastrointestinal Gastrointestinal: reports: Abdominal pain, Constipation, Other (taking sips/medications only). denies: Nausea, Vomiting - Genitourinary Genitourinary: reports: Other (bladders spasms;) - Musculoskeletal Musculoskeletal: reports: Stiffness, Muscle weakness, Assistive devices (has walker and wheelchair) - Integumentary Integumentary: reports: Dryness, Other (abdominal wound at lap site) - Neurological Neurological: reports: General weakness - Psychiatric Psychiatric: reports: Depression, Anxiety - Endocrine Endocrine: reports: Hypothyroidism, Other (checking BS for TPN) - Hematologic/Lymphatic Hematologic/Lymphatic: reports: Anemia (07/18 9.3), Recurrent infections (abcesses; presents today s/s UTI) - All Other Systems All Other Systems: reports: Reviewed and negative Physical Exam - Vital Signs Temperature: 98.4 C Pulse Rate: 94 Respiratory Rate: 18 Blood Pressure: 118/72 - Physical Exam General Appearance: positive: Alert, Mild distress, Anxious, Lethargic Eyes Bilateral: positive: Other (periorbital edema) ENT: positive: Other (mouth dry; tongue with coating; no lesions in buccal cavity) Neck: positive: No JVD, Trachea midline Cardiovascular: positive: Regular rate & rhythm Respiratory: positive: No respiratory distress Abdomen: positive: Soft, Abnml bowel sounds, Tenderness Skin: positive: Pallor, Wound (HH changing dressing) Extremities: positive: No pedal edema, Other (resting in recliner) Neurologic/Psychiatric: positive: Oriented x3, Depressed mood/affect, Flat affect, Other (voice quiet; effort to talk) Palliative Care - POLST Patient has POLST: Yes POLST Status: DNR, Comfort Measures Pain: Pain worsening, Location (abdominal diffuse; has been on TID APAP 1000 mg; needing more MS 2.5 mg over weekend; lasting only about 2 hours giving some relief; acute pain with catheter issues) Tiredness/Fatigue: Severe (7-10) Drowsiness/Sedation: Moderate (4-6) (sleeping more) Nausea: None Anorexia: Weight loss Dyspnea: None Depression: Moderate (4-6) Anxiety: Moderate (4-6) Feelings of wellbeing/Perceived Quality of Life: Poor, Worsening Sleep: Sleeps poorly (related to catheter issues;) Constipation: Yes, Unmanaged (no BM since 07/18; exam over w/e no stool in lower vault) Performance Status: patient has been pushing self; up and ambulated in house with goal to "move gas" very weak; reports more comfortable just laying in recliner; had been pushing self and walking several times a day at hospital; feeling conflicted about effort to put in. Dependent for bathing and personal care/ADLs - Palliative Care Discussion: Patient does understand the seriousness of his illness, does feel like he is dying. His goals are to wrap up his affairs, he has made progress with this, plans, making financial arrangements, figuring out benefits for his . He reports he has been seeing his goodbyes, seeing people in the home setting, but is conflicted when to transition. We discussed this may or may not be his choice, given his progressive symptoms, currently if his pain is better controlled, he feels like this is tolerable, but if he were to be more dependent, or worsening pain he would like to transition. His family is reeling from not only the rapidity of his decline, but also transitions of goals fairly quickly in the inpatient setting. Originally told he had a treatable disease, with extended prognosis of years, to transitioning to months, to transitioning to days. Daughter relays a very distressing conversation regarding transitioning to hospice, particularly in the context of "7 to 10 days" if no nutritional support. Their goals were to bring him home, his goal is to last until his anniversary 08/15. In the context of conversation, he also wanted to access DWD. Unfortunately given his small bowel obstruction, or limited time line, this is not a realistic option for him. Their impression was he could get something IV, and the hospice team could facilitate this. Counseling provided regarding the complexity of this process, but reassurance given when patient ready to transition most likely will be a quick decline. Short-term goal is to get patient more comfortable, he has been having progressive abdominal pain and discomfort over the weekend, this is complicated by acute pain related to his bladder and most likely UTI. Patient has not been getting adequate relief, reports his pain is moderate to severe, using 2.5 mg of morphine, with only about 2 hours relief. Patient and family would also like guidance when to transition to hospice, as they do see him deteriorating. Impression and Recommendations - Palliative Care Impression: This is an unfortunate 83-year-old gentleman who presents with high-grade lymphoma, originally presenting with small bowel obstruction due to circumferential masslike wall thickening in distal jejunum, post resection 06/18/[address] scan 07/20. Patient not a candidate for chemotherapy, goal is for comfort measures, and transition to hospice. He is had complicated course with recurrent intra-abdominal abscesses, he has had no bowel movement since 07/18, and presents with severe protein calorie malnutrition and progressive abdominal pain. Patient is quite weak, is alert and awake able to participate in conversation. Is also has a known right hydronephrosis attributed to tumor spread as well. Patient has had this significant urinary symptoms, including frequency, obstruction, and now difficulty with Fonseca catheter placement. Today presents with symptoms attributed to UTI with hazy urine, increased discomfort, and bladder spasms. Palliative care visit today to assist with pain and symptom management, goals of care, and establish rapport Recommendations/Counseling Done: 1. Acute on chronic pain. Patient with inadequate pain management, discussion related to primary goal is comfort. Patient on low doses of morphine, and acetaminophen with little effect. Counseling provided regarding transitioning to fentanyl 12 mcg patch, encouraged to use morphine 2.5 mg every 2 hours more frequently for breakthrough pain, or increased to 5 mg for improved duration. Rx ordered, please note morphine concentrate is 10 mg per 5 mils, [facility] would not dispense concentrated due to their safety regulations. Instructed to discontinue acetaminophen, as more difficult swallowing, as well as ibuprofen given patient is on dexamethasone. 2. UTI. Patient does present with symptoms of bladder spasms, increased pain and discomfort, and hazy urine. We will go ahead and treat with Bactrim DS twice daily, liquid is having increased trouble swallowing. UA obtained by home health RN with catheter change. Of note on CT scans prostate gland appears enlarged, already shows an amount of dense debris dependent in the bladder, moderate right hydronephrosis with stranding and fluid surrounding the renal pelvis, segmental filling defect in the mid distal right ureter, debris thought to be possibly clots. Patient with Fonseca catheter, will discontinue Tamulosin to decrease pill burden, and oxybutin for comfort. 3. High-grade lymphoma. Patient not a candidate for treatment related to his complications of disease, as well as protein calorie malnutrition. Expected ongoing decline and sequela related to tumor burden. 4. Severe protein calorie malnutrition. Patient appears quite thin and cachectic. Is being supported by TPN. Counseling provided regarding threshold for transitioning off and weighing benefits versus burden. Reviewed can continue to revisit this question on a day by day basis. 5. Small bowel obstruction. Patient with no BM, but does not present with nausea and vomiting currently. Patient on Decadron 4 mg twice daily, will order Haldol and lorazepam for tool kit, in case presents with recurrent nausea vomiting. Patient without distention, few scattered tinglings, pain located most likely in the right lower quadrant. 6. Advanced care planning. Patient is rapidly declining, suspect his goal to make it to August 15, may be optimistic, patient is working forward on completing and getting affairs in order. He is understandably disappointed cannot access DWD, but did reassure and transition to hospice and given his disease state was likely a fairly quick decline with goal to keep him comfortable through transition to end-of-life. Agreed weighing day to day benefit and burden of continued TPN, and transition to comfort/hospice when patients goals met or decline imminent. Time Spent: 90 minutes with greater than 50% of this done in counseling regarding pain and symptom management, goals of care, setting of rapport, coordination of care with home health.
== END 2019-07-31 11:36 | disposition home or self-care (01) ==
LOC: PC 11:35
PROVIDERS: ATTEND Nurse Practitioner Adult Health
DX: Z51.5 Encounter for palliative care (principal); G89.3 Neoplasm related pain (acute) (chronic); C83.39 Diffuse large B-cell lymphoma, extranodal and solid organ sites; K56.699 Other intestinal obstruction unspecified as to partial versus complete obstruction; K59.00 Constipation, unspecified; N32.89 Other specified disorders of bladder; R30.0 Dysuria; N13.30 Unspecified hydronephrosis; E43 Unspecified severe protein-calorie malnutrition; Z79.899 Other long term (current) drug therapy; Z79.891 Long term (current) use of opiate analgesic; Z79.52 Long term (current) use of systemic steroids; Z95.828 Presence of other vascular implants and grafts; Z66 Do not resuscitate
CPT/HCPCS: 99345

== ENCOUNTER 2019-08-03 13:13 | Outpatient (CLI) | payer MEDICARE, OTHER ==
--- NOTE | 2019-08-03 15:48 | CONSULTATION NOTE ---
Palliative Care Follow Up - Referral Referring Provider: Dr. Kali Fajardo Time of Visit: [id number] Referral setting: Home Referral Reason: Lymphoma/SBO/Pain of neoplastic origin/UTI - Information Sources Records reviewed: Previous records reviewed History/Review of Systems obtained from: Patient, Family (daughter Sofia and present) Exam limitations: No limitations - History of Present Illness Update Brief HPI Update: Please see more complete HPI from 07/31. This is an 83-year-old gentleman discharged from [facility], after he had undergone an exploratory lap with mild bowel resection and anastomosis, after excision of a mesenteric mass and appendectomy in 06/18/2019. 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 He did also develop pulmonary embolism, and after greater than a month was discharged home has he showed recurrent disease. Given he continued to present with obstruction, and also right hydronephrosis assumed to be from tumor spread. Patient was unable to tolerate oral tube feedings, so has been discharged on TPN. Patient's goals were to complete his affairs, and was unable to go on hospice given TPN support. Patient on 07/31 presented with acute symptoms of urinary tract infection, proven positive UA. Patient has been on Bactrim DS twice daily with oxybutin for spasms with good response. Catheter is draining, urine is somewhat hazy, but clear. Patient is having no further pain or discomfort or spasms from catheter. Patient describes his pain as a volleyball sitting in the middle, that feels like a full worm barrel, that is writhing and almost feels the cancer growing. Does describe this sensation is quite disturbing, his pain has been much better controlled with the initiation of the fentanyl 12 mcg patch. He does have acute short stabbing episodes of pain, these have been managed with Gas-X and morphine with relief so far. He has not had any vomiting, he is on Decadron 4 mg twice daily, he did have some nausea which did respond to the Haldol. Patient does appear much more comfortable today, he is making eye contact able to engage. His voice is quite modulated, is appropriately tearful, family is asking appropriate questions regarding anticipatory guidance, weighing benefits and burdens of when to know transition points for TPN. Patient currently is not showing any symptoms of fluid overload, appears to be benefiting as far as hydration and is able to ambulate short distances. He has been able to work on his "[employer] list" and daughter is managing his medications appropriately. Social History - Living Situation Living arrangement: At home Living Situation: With spouse/s.o. Support System: Patient was the primary caregiver for his and his 's brother who is developmentally at a 10-year-old level. He does live with them and has been receiving support. The , Claudette, is present, she is appropriate and more engaged this visit. They are hoping to make it to their anniversary on 08/15. Sofia his daughter, is taking a FMLA leave, to provide care, she works at [employer], and so is familiar somewhat with the medical system. They are working at getting their financial affairs in order, they were able to her taxes which was a huge burden for him yesterday. It is unclear with the future plans will be as far as caring for the brother, as well as supporting his . His son Bronson, was to come up today, unfortunately unable to coordinate visit. There is concern about his coping and able to adjust particular in the future to his father's decline. There is another son who is estranged. He has been reached out to by his sister, but no response so far Medications/Allergies - Medications Home Medications: Ambulatory Orders Medication Instructions Recorded Confirmed Umeclidinium Brm/Vilanterol Tr 1 inh PO DAILY 02/05/18 08/03/19 [Anoro Ellipta 62.5-25 Mcg INH] Pantoprazole Sodium 20 mg PO BID 06/14/19 08/03/19 Dexamethasone 4 mg PO BID 07/31/19 08/03/19 Enoxaparin [Lovenox] 120 mg SQ DAILY 07/31/19 08/03/19 Haloperidol Oral Soln [Haldol Oral 0.5 mg PO Q4HR PRN 07/31/19 08/03/19 Soln] LORazepam [Lorazepam INTENSOL] 0.5 mg PO Q6HR PRN 07/31/19 08/03/19 Morphine Sulfate 2.5 - 5 mg PO .Q2 PRN 07/31/19 08/03/19 Oxybutynin [Ditropan] 5 mg PO DAILY 07/31/19 08/03/19 Sulfamethox/Trimeth 800/160 1 tab PO BID MDD liquid form x 5 07/31/19 08/03/19 [Bactrim Ds] days fentaNYL [Fentanyl 12mcg patch] 12 mcg TOP .Q3DAYS 07/31/19 08/03/19 Simethicone [Gas Relief] 80 mg PO Q6HR PRN 08/01/19 08/03/19 Bisacodyl [Laxative Suppository] 10 mg ID DAILY PRN 08/03/19 08/03/19 Nystatin 5 ml PO QID 08/03/19 08/03/19 - Allergies Allergies/Adverse Reactions: Allergies Allergy/AdvReac Type Severity Reaction Status Date / Time fluticasone propionate * AdvReac Unknown Verified 06/14/19 11:11 [From Advair Diskus] salmeterol xinafoate * AdvReac Unknown Verified 06/14/19 11:11 [From Advair Diskus] Review of Systems - Constitutional Constitutional: reports: Fatigue (improved), Weakness. denies: Fever, Chills - Ears, Nose & Throat Ears, Nose & Throat: reports: Sore throat, Hoarseness, Dry mouth - Cardiovascular Cardiovascular: reports: Decr. exercise tolerance. denies: Chest pain - Respiratory Respiratory: denies: Wheezing, SOB at rest - Gastrointestinal Gastrointestinal: reports: Constipation (no BM since 07/18), Nausea (severe episode x 2 with gas/pain; relieved this am with haldol;) - Genitourinary Genitourinary: reports: Other (keene catheter; draining mucousy ginny urine). denies: Dysuria - Musculoskeletal Musculoskeletal: reports: Stiffness, Muscle weakness, Assistive devices (uses walker when up) - Integumentary Integumentary: reports: Dryness - Neurological Neurological: reports: General weakness, Dizziness (when gets up;), Other (voice weak) - Psychiatric Psychiatric: reports: Depression (appropriately tearful), Anxiety - Endocrine Endocrine: reports: Other (BS running near 200's) - Hematologic/Lymphatic Hematologic/Lymphatic: reports: Recurrent infections (tx for UTI) - All Other Systems All Other Systems: reports: Reviewed and negative Physical Exam - Vital Signs Temperature: 97.2 C Pulse Rate: 63 Respiratory Rate: 18 O2 Saturation: 98 (ra @ rest) Blood Pressure: 152/72 - Physical Exam General Appearance: positive: Alert, Mild distress, Anxious Eyes Bilateral: positive: Normal inspection ENT: positive: Other (mouth with thick white coating; c/o hoarseness suspect oral candidiasis) Neck: positive: Trachea midline Cardiovascular: positive: Regular rate & rhythm Respiratory: positive: Other (diminished RLL;). negative: Wheezes, Rales, Rhonchi Abdomen: positive: Soft, Abnml bowel sounds (few distant tinkling), Tenderness (mild). negative: Guarding, Distended Skin: positive: Pallor, Dryness Neurologic/Psychiatric: positive: Oriented x3, Mood/affect nml (tearful appropriately), Weakness Palliative Care - POLST Patient has POLST: Yes POLST Status: DNR, Comfort Measures Pain: Pain improved, Location (see HPI;using fentanyl 12 mcg patch; MS 2.5 mg for breakthrough pain 1-2 x/24 hours) Tiredness/Fatigue: Moderate (4-6) Drowsiness/Sedation: Mild (1-3), Comment (easily drifts off) Nausea: Mild (1-3) Depression: Moderate (4-6) Anxiety: Moderate (4-6) Feelings of wellbeing/Perceived Quality of Life: Poor, Worsening Sleep: Variable sleep pattern Constipation: Yes Performance Status: Patient is sleeping in bed, [facility] He is very sedentary, does get somewhat dizzy and feeling quite shaky when he is up. But has been up ambulating short distances in his house last couple days. He is quite pleased. Is using walker. Is dependent for bathing, and needs contact assist and supervision for ambulation - Palliative Care Discussion: Patient shares that he has been on doing well as far as getting his bucket list taking care of, he had a high power day yesterday, has gotten his taxes done, good interactions, feeling positive about what he is getting accomplished. He certainly is quite tearful when thinking about his imminent decline, and his family and himself are asking appropriate questions about transition points. Patient currently tolerating TPN, as well as medications, at this point in time he is still presents with obstructive symptoms, but no acute pain or distress with this. Symptoms are well controlled, he still perceives this as adequate quality of life. Anticipatory questions and information given as requested. Daughter does express concern regarding management of unexpected symptoms. So far has done okay with [facility] call line, and HH access to hospice line for palliative. Reassured and given positive feedback for how organized she has been, and problem solving she has done. She does have "tools" available, and did initiate Haldol with good results so feeling a little bit more competent. Results - Lab Results Lab results reviewed: Yes Impression and Recommendations - Palliative Care Impression: This is an 83-year-old gentleman who presents with high-grade lymphoma, has recurrent small bowel obstruction, severe protein calorie malnutrition receiving TPN, known right hydronephrosis, and UTI currently on antibiotics. Palliative care providing support regarding assisting pain and symptom management, defining and furthering goals of care, and transition to hospice when appropriate. Recommendations/Counseling Done: 1. Pain of neoplastic origin. Patient is doing much better on the fentanyl 12 mcg patch, is using morphine 2.5 mg as needed for breakthrough pain, has only needed 1-2 doses in 24 hours in response to acute sharp stabbing abdominal pain which is been intermittent in nature. He has gotten response with this. No titration needed at this point in time. 2. UTI. Patient's bladder spasms to settle down with the treatment with Bactr im DS, UA and sensitivities do show sensitivity to AB. Patient is to continue on oxybutynin 5 mg, has had a difficult time with the catheter, now draining without any problems or leakage. 3. Oral candidiasis. Patient at high risk with inhaler, steroids, and now antibiotics. Will initiate nystatin 5 mils 4 times daily, this may assist with patient's hoarseness, mouth discomfort, and dryness. Counseling provided regarding proper use, including waiting 15 minutes after swish and if he can swallow would be preferred. Rx sent to [facility]. 4. High-grade lymphoma. Patient is not a candidate for treatment related is complication of his disease, patient does understand the seriousness of his illness, expected ongoing decline and sequela related to tumor burden. 5. Severe protein malnutrition. Patient does appear quite thin and cachectic, is being supported by TPN. Counseled and questions answered regarding threshold for transitioning off and weighing benefits versus burden. Patient currently tolerating without any signs or symptoms of fluid overload or discomfort. Again reviewed can continue to revisit this question on a day-to-day basis, both patient and family are aware. 6. Small bowel obstruction. Patient still had no BM, his abdomen is not tight or taut no high tinkling bowel sounds, no nausea or vomiting that is been persistent. Patient with only slight abdominal distention, did discuss in the context of lower bowel function, would like to try a Dulcolax suppository, and follow-up rectal exam. Family to obtain basic total, coordination of care with RN for follow-up. 7. Advanced care planning. Patient is meeting with the [facility] tomorrow, they are making plans, and finishing up affairs. He is feeling much better and less anxious regarding this. Patient is quite tearful, able to acknowledge his imminent decline, is hoping for continued good days, he had what he calls a "power day" yesterday. The plan is still to transition to hospice when patient decides no further TPN, or declines more rapidly with high symptom burden.Patient's goal is to not suffer, have good pain control, and a quick transition at end-of-life. Time Spent: 45 minutes with greater than 50% of this done in counseling regarding pain and symptom management, anticipatory guidance, coordination of care with home health RN. [facility] health.
== END 2019-08-03 13:14 | disposition home or self-care (01) ==
LOC: PC 13:13
PROVIDERS: ATTEND Nurse Practitioner Adult Health
DX: Z51.5 Encounter for palliative care (principal); G89.3 Neoplasm related pain (acute) (chronic); R42 Dizziness and giddiness; C83.39 Diffuse large B-cell lymphoma, extranodal and solid organ sites; K56.609 Unspecified intestinal obstruction, unspecified as to partial versus complete obstruction; E43 Unspecified severe protein-calorie malnutrition; B37.0 Candidal stomatitis; R53.1 Weakness; K59.00 Constipation, unspecified; R53.83 Other fatigue; R11.0 Nausea; N39.0 Urinary tract infection, site not specified; Z79.899 Other long term (current) drug therapy; Z79.891 Long term (current) use of opiate analgesic; Z95.828 Presence of other vascular implants and grafts; Z66 Do not resuscitate
CPT/HCPCS: 99349

== ENCOUNTER 2019-08-09 12:45 | Outpatient (CLI) | payer MEDICARE, OTHER ==
--- NOTE | 2019-08-09 18:04 | CONSULTATION NOTE ---
Palliative Care Follow Up - Referral Referring Provider: Dr. Fajardo Time of Visit: [id number] Referral setting: Home Referral Reason: Lymphoma/SBO/Pain of neoplastic origin/UTI - Information Sources Records reviewed: Previous records reviewed History/Review of Systems obtained from: Patient, Family ( Stacie present; Sofia daughter and caregiver) Exam limitations: Clinical condition (patient feeling poorly; mild cog. deficits) - History of Present Illness Update Brief HPI Update: This is an 83-year-old gentleman who has returned home to , after a long and complex journey over the last several weeks. He has had surgery for mesenteric mass and appendectomy on 06/18/2019 for a diffuse large B-cell lymphoma, unfortunately had recurrent complications regarding this. He developed a pulmonary embolism, and after more than a month was discharged home as he showed recurrent disease and recurrent obstruction. He also has right right hydronephrosis assumed to be from tumor compression. Unfortunately is unable to tolerate oral feedings, he did want time to put his affairs in orders, so was discharged to home health with TPN, his daughter Sofia continues to be the primary support. His original transition was complicated by ongoing symptoms of urinary retention, UTI, and ongoing obstructive pain and discomfort. He has not had nausea and vomiting, though today he does present with nausea having increased difficulty tolerating his oral meds. He is only been able to take sips of fluid in his meds, otherwise he is dependent on the TPN. He did have a small bowel movement this last Wednesday, after a Dulcolax suppository. Today on examination, his abdomen is slightly firm, not taut, does have hyperactive bowel tones, is passing gas and no stool in his rectal vault. Patient was originally treated with 5 days of Bactrim DS, in the context of wanting to minimize oral intake, unfortunately this did not clear, and was restarted on Wednesday with some improvement in pain and symptoms, though does present today with a large amount of sediment and Keene blockage with spasms. Did flush with 60 mils of saline which did appear to relieve the pressure, catheter is draining without problems by the time I left. He is having some increased bleeding, was tired of being "poked". He is getting somewhat anxious as he did present with severe pain crisis over the last couple hours, and he is not going to make it to his date of 08/15 which is his anniversary. His pain presents with multiple pain generators. His most acute pain, is spasms around his urethra and bladder. We had increased oxybutynin on Wednesday, will order 15 mg sustained release to decrease pill burden. He reports his scrotum and testicle is quite tender, does have some candidiasis, is using powder in the groin folds, and at the tip, but he does have irritation most likely from the urine leaking. Did put some Cavilon barrier cream on and hopefully will not further leak. Patient also having abdominal pain and discomfort, with a sharp stabbing intermittent pains, usually responsive to the morphine and Gas-X, they had been only using a little more than 2 mg, this been helpful early on, but does seem to be escalating. Describes a severe pain in his lower colon, describes it as a rafa asim going from his anus to his bellybutton. Patient finally comfortable had received morphine 4 mg previous to my visit. Patient also feeling somewhat "overfull" from the TPN. My understanding is they are modifying and decreasing the volume. Patient continues to struggle day-to-day if whether to continue or not, reviewed we can be more aggressive with his pain management. I believe his nausea is from most likely pill burden, also going to spread out his medications to see if he can absorb better. He has not vomited as of yet. Social History - Living Situation Living arrangement: At home Living Situation: With spouse/s.o., With family Support System: His remains quite passive, and quiet through the visit, Sofia is the primary caregiver, still on leave. 's brother who is developmentally delayed, also lives in the home and has been receiving support. They have continue to make progress on the financial matters and he is feeling better about this.She reports her brother is coming through Wednesday. He seems to be taking more of this in stride, he is focused currently on finding out abo ut the lawsuit regarding [place] is found to be suing, as a result of multiple patients having lymphoma. He does want to be there for end-of-life, he says he has the things he can do, though remains quite tense about how this is all going to fall out. Medications/Allergies - Medications Home Medications: Ambulatory Orders Medication Instructions Recorded Confirmed Umeclidinium Brm/Vilanterol Tr 1 inh PO DAILY 02/05/18 08/09/19 [Anoro Ellipta 62.5-25 Mcg INH] Pantoprazole Sodium 20 mg PO BID 06/14/19 08/09/19 Dexamethasone 4 mg PO BID 07/31/19 08/09/19 Haloperidol Oral Soln [Haldol Oral 0.5 mg PO Q4HR PRN 07/31/19 08/09/19 Soln] LORazepam [Lorazepam INTENSOL] 0.5 mg PO Q6HR PRN 07/31/19 08/09/19 Morphine Sulfate 5 - 10 mg PO .Q2 PRN 07/31/19 08/09/19 Oxybutynin [Ditropan] 15 mg PO DAILY 07/31/19 08/09/19 Sulfamethox/Trimeth 800/160 1 tab PO BID MDD liquid form x 7 07/31/19 08/09/19 [Bactrim Ds] days to 08/12 fentaNYL [Fentanyl 12mcg patch] 12 mcg TOP .Q3DAYS 07/31/19 08/09/19 Simethicone [Gas Relief] 80 mg PO Q6HR PRN 08/01/19 08/09/19 Bisacodyl [Laxative Suppository] 10 mg TN DAILY PRN 08/03/19 08/09/19 Nystatin 5 ml PO QID 08/03/19 08/09/19 - Allergies Allergies/Adverse Reactions: Allergies Allergy/AdvReac Type Severity Reaction Status Date / Time fluticasone propionate * AdvReac Unknown Verified 06/14/19 11:11 [From Advair Diskus] salmeterol xinafoate * AdvReac Unknown Verified 06/14/19 11:11 [From Advair Diskus] Review of Systems - Constitutional Constitutional: reports: Fatigue, Malaise, Weakness. denies: Fever, Chills - Ears, Nose & Throat Ears, Nose & Throat: reports: Hearing loss, Hearing aids, Hoarseness, Dry mouth - Cardiovascular Cardiovascular: reports: Lightheadedness, Exertional dyspnea, Decr. exercise tolerance - Respiratory Respiratory: reports: SOB with exertion. denies: SOB at rest - Gastrointestinal Gastrointestinal: reports: Abdominal pain, Abdominal distention, Constipation, Nausea, Bloating. denies: Vomiting - Genitourinary Genitourinary: reports: Dysuria, Hematuria, Urethral discharge, Other (keene; cloudy urine with sediment; some bleeding; painful scrotal area) - Musculoskeletal Musculoskeletal: reports: Stiffness, Muscle weakness, Assistive devices (walker for short distances) - Integumentary Integumentary: reports: Rash (groin), Dryness - Neurological Neurological: reports: General weakness, Memory problems - Psychiatric Psychiatric: reports: Depression, Anxiety - Hematologic/Lymphatic Hematologic/Lymphatic: reports: Anemia, Recurrent infections (UTI most likely not cleared restarted AB 08/07) - All Other Systems All Other Systems: reports: Reviewed and negative Physical Exam - Vital Signs Temperature: 96.7 C Pulse Rate: 59 Respiratory Rate: 19 O2 Saturation: 95 (ra @ rest) Blood Pressure: 152/72 - Physical Exam General Appearance: positive: Moderate distress, Anxious Eyes Bilateral: positive: Normal inspection ENT: positive: Other (tongue with blue coating from [place]; oral candidiasis improved) Neck: positive: Trachea midline Cardiovascular: positive: Regular rate & rhythm Respiratory: positive: No respiratory distress, Breath sounds nml Abdomen: positive: Abnml bowel sounds (hyperactive), Tenderness, Guarding, Other (meza but still stoft). negative: Mass Skin: positive: Pallor, Dryness, Rash (around scrotum and penis) Extremities: positive: No pedal edema Neurologic/Psychiatric: positive: Oriented x3, Weakness, Depressed mood/affect, Flat affect Palliative Care - POLST Patient has POLST: Yes POLST Status: DNR, Comfort Measures Pain: Pain worsening, Location (see HPI) Tiredness/Fatigue: Severe (7-10) Drowsiness/Sedation: Moderate (4-6) Nausea: Moderate (4-6) Depression: Moderate (4-6) Anxiety: Severe (7-10) Feelings of wellbeing/Perceived Quality of Life: Poor, Worsening Sleep: Sleep improved Constipation: Yes Performance Status: Patient spending most of his time in the recliner, is quite weak, needs assistance with a gait belt from sitting to standing. He is weak and shaky when stood for exam. He has had fluctuations as far as his activity tolerance, but seem's to be doing a little bit worse this a.m. He did have a lot of visitors yesterday. - Palliative Care Discussion: Patient very discouraged with acute pain crisis, things are settling down. He continues to struggle with whether to continue on with the TPN or not. His original goal had been to last till 3/for his anniversary. He continues with the TPN, does seem like he may be having some symptoms today related to fluid shifts. We will need to watch carefully. Revisited again DWD, daughter again thinking patient could take part of and it did realize it was extended period time, reinforced patient literally cannot do it as it is a large volume of fluid to drink and would need to be able to keep it down. Counseling provided regarding the role of hospice, point patient done with TPN, and ready to transition, will focus on keeping him comfortable and pain free, if his goals to be more sedated and pain control versus awake and alert we can honor that we cannot hasten , but certainly will come quickly within days after stopping. Suspect also if patient were to stop antibiotics, would easily become septic. Daughter does feel helpless at times when she cannot assist him when he is having the intermittent pain episodes, she is feeling better. Reviewed plan and latitude with morphine to be able to keep him comfortable. Impression and Recommendations - Palliative Care Impression: Is an 83-year-old gentleman who presents with high-grade lymphoma, with recurrent small bowel obstruction, severe protein calorie malnutrition currently receiving TPN, known right hydronephrosis, currently on antibiotics. Patient is demonstrating more signs and symptoms of obstruction, today patient is having escalation in pain. Palliative care continue provide support regarding assisting with pain and symptom management, defining and furthering goals of care, and transition to hospice when appropriate Recommendations/Counseling Done: 1. Pain of neoplastic origin. Patient had been doing fairly well on fentanyl 12 mcg patch, until this morning his pain crisis. Counseling provided regarding increase dosing of morphine for pain control. Recommended using 2.5 mils as starting dose, can use up to 5 pills, every 2 hours as needed. Also discussed if original dose does not provide relief can repeat within 30 minutes. Will evaluate over the next 24 hours if need to increase fentanyl patch, patient is due for home health RN visit tomorrow, will confer. Unclear if this is just a single episode, or is going to be more consistent. 2. UTI. Patient with increased spasms, will go ahead and increase oxybutynin to 15 mg extended relief, decreased pill burden as this does seem to be dose that is most appropriate. Patient complains of dysuria, flushed catheter was draining better prior to leaving. Instructions and review with Latanya increased does appear to be clogged again. Urine does have quite a bit of sediment in it, and also some bleeding. Decision was made to discontinue Lovenox both for comfort and patient showing signs of bleeding. 3. Protein calorie malnutrition. We will follow-up on labs from infusion s olutions. Daughter's understanding is they are getting to decrease the volume and increase the concentration of solutes. Patient perceives increased discomfort with increased fluid. He is putting out large amounts of urine, 1100 mils overnight. 4. Candidiasis skin, patient does present with rash in groin, and most likely a dermatitis in his scrotal penal area. Urine is quite concentrated, suspect this is adding to his discomfort. Instructed to use Nystop in groin folds and moist folds around testicles and scrotum. Instructed to use Cavilon barrier cream around tip of penis and where leaking onto scrotal sac. 5. Small bowel obstruction. Patient is presenting with more intensive symptoms, most likely related to his progressive cancer. Patient was given Haldol at time of visit, does make him somewhat "loopy". Counseling provided regarding spacing out medications as to decrease pill burden, and about going in at one time. Rectal exam done, no stool in his lower vault. He continues to use Gas-X and morphine for abdominal discomfort. 6. Advanced care planning. Patient struggling weighing his quality of life, with leaking out several more days. They are disappointed again in review of DWD, will not be accessible to the patient nor most likely tolerated. Counseling provided regarding end-of-life, goal to keep comfortable, patient can weigh each day benefit of burden of continuing TPN. Counseling and anticipatory guidance provided regarding EOL issues. Time Spent: 65 minutes with greater than 50% of this done in counseling regarding management of obstructive catheter, pain management, small bowel obstruction, and anticipatory guidance. [facility]
== END 2019-08-09 12:46 | disposition home or self-care (01) ==
LOC: PC 12:45
PROVIDERS: ATTEND Nurse Practitioner Adult Health
DX: Z51.5 Encounter for palliative care (principal); G89.3 Neoplasm related pain (acute) (chronic); R11.0 Nausea; N39.0 Urinary tract infection, site not specified; E43 Unspecified severe protein-calorie malnutrition; B37.2 Candidiasis of skin and nail; N13.30 Unspecified hydronephrosis; F32.9 Major depressive disorder, single episode, unspecified; F41.9 Anxiety disorder, unspecified; R53.81 Other malaise; R53.1 Weakness; C83.33 Diffuse large B-cell lymphoma, intra-abdominal lymph nodes; Z79.899 Other long term (current) drug therapy; Z79.891 Long term (current) use of opiate analgesic; Z95.828 Presence of other vascular implants and grafts; Z66 Do not resuscitate
CPT/HCPCS: 99350